=== PATIENT | female | born 1940 | race Caucasian/White ===

== ENCOUNTER 2018-09-19 23:24 | Inpatient (IN) | payer MEDICARE, OTHER ==
[2018-09-20] MEDS ORDERED: GLUCAGON 1 MG/ML VIAL IVP STA (00:05)
--- NOTE | 2018-09-20 00:10 | ED ---
General Adult HPI - General Source: patient, family, EMS, RN notes reviewed, old records reviewed Mode of arrival: EMS Limitations: language barrier, altered mental status <Zeke Santos - Last Filed: 09/20/18 00:54> <Erma Montiel - Last Filed: 09/20/18 03:03> - General Chief complaint: Chest Pain Stated complaint: Trouble swallowing Time Seen by Provider: 09/19/18 23:48 - History of Present Illness Initial comments: Chief complaint history of present illness this is a 77-year-old female here with her daughter. The patient has severe dementia. Unable to speak, does not fully understand. The daughter reports that she gave her mother some food, hamburger and she choked on it. Since then she's not been able to even swallow her own saliva. Emergency room patient was given several tablespoons of warm water and they were not able to pass through the esophagus and the stomach. (Zeke Santos) - Related Data Home Medications Medication Instructions Recorded Confirmed Aspirin [Adult Low Dose Aspirin EC] 81 mg PO DAILY 05/15/17 05/15/17 Atorvastatin Calcium [Lipitor] 20 mg PO DAILY 05/15/17 05/15/17 Lisinopril [Zestril] 5 mg PO DAILY 05/15/17 05/15/17 Memantine HCl [Namenda Xr] 28 mg PO DAILY 05/15/17 05/15/17 Allergies Allergy/AdvReac Type Severity Reaction Status Date / Time No Known Allergies Allergy Verified 05/15/17 19:18 Review of Systems ROS Other: All systems not noted in ROS Statement are negative. <Zeke Santos - Last Filed: 09/20/18 00:54> ROS Other: All systems not noted in ROS Statement are negative. <Erma Montiel P - Last Filed: 09/20/18 03:03> ROS Statement: Those systems with pertinent positive or pertinent negative responses have been documented in the HPI. Review of systems. Patient is not able to communicate well enough. Past medical problems significant for occasionally having food stuck but the daughter reports Unable to dislodge at home. Otherwise the patient's surgeries include cholecystectomy. Denies ALLERGIES. Family history Brother and sister both throat and lung cancer respectively. Nonsmoker nondrinker (Zeke Santos) Past Medical History Past Medical History: Dementia Additional Past Medical History / Comment(s): daughter poor historian History of Any Multi-Drug Resistant Organisms: None Reported Past Surgical History: Cholecystectomy Past Psychological History: No Psychological Hx Reported Smoking Status: Never smoker Past Alcohol Use History: None Reported Past Drug Use History: None Reported <Zeke Santos - Last Filed: 09/20/18 00:54> General Exam Limitations: language barrier, altered mental status <Zeke Santos - Last Filed: 09/20/18 00:54> - General Exam Comments Initial Comments: General: The patient is awake is spitting up her phlegm. Unable to swallow her own saliva. Patient is edentulous and it appears as though she has a food bolus in her esophagus. She is not having any difficulty breathing. Vital signs temperature 90.6 history rate 18 pulse ox 97% room air blood pressure 108/76 Eye: Pupils are equal, round and reactive to light, extra-ocular movements are intact; there is normal conjunctiva bilaterally. No signs of icterus. Ears, nose, mouth and throat: There are moist mucous membranes patient's edentulous. Neck: The neck is supple,. Cardiovascular: There is a regular rate and rhythm. No murmur, rub or gallop is appreciated. Respiratory: Lungs are clear to auscultation, respirations are non-labored, breath sounds are equal. No wheezes, stridor, rales, or rhonchi. Gastrointestinal: Daughter, who takes care of her states she thinks she may be constipated Back: There is no tenderness to palpation in the midline. There is no obvious deformity. No rashes noted. Musculoskeletal: Normal ROM, no tenderness, There is no pedal edema.. Neurological: Due to dementia patient is unable to perform neurological test. The patient is able to ambulate Skin: Skin is warm and dry and no rashes or lesions are noted. Psychiatric: Severe dementia, unable to cooperate (Zeke Santos) Course Vital Signs 09/19/18 09/19/18 09/20/18 23:31 23:39 01:38 Temperature 96.7 F L Pulse Rate 96 84 Respiratory 20 18 18 Rate Blood Pressure 108/76 106/79 O2 Sat by Pulse 97 96 Oximetry Medical Decision Making <Zeke Santos - Last Filed: 09/20/18 00:54> - Lab Data Result diagrams: 09/20/18 00:45 09/20/18 00:45 <Erma Montiel - Last Filed: 09/20/18 03:03> - Medical Decision Making Medical decision making; a 77-year-old female with severe dementia. Unable to speak. Sometimes even unable to swallow with coordination. Is suspected the patient may have a food bolus in the esophagus. She didn't eat a hamburger at home and daughter reports that appears a she was choking on it. When she arrived emergency room she was still's gurgling and spitting up some phlegm. She was unable to swallow warm are warm water. The patient's chest x-ray was done reviewed radiologist his impression is negative chest. Labs are drawn. The patient was given glucagon 1 mg. But due to her lack of coordination to grow 15 seconds district a little bit of water. Still waiting to see if the patient's food bolus was relieved. The patient was endorsed to ER physician Dr. Montiel. She will determine final disposition. (Zeke Santos) care was signed out to me by Dr. Santos. I reevaluated the patient she continued to have difficulty with swallowing. She did attempt to drink water bu t would have choking episodes. Family at bedside was suctioning or every 20-30 minutes due to difficulty with oral secretions. I discussed patient care with Dr. Joe cisneros who agrees with the plan to place the patient in observation to the medicine service he will evaluate the patient in the morning for possible endoscopy. (Erma Montiel) - Lab Data Lab Results 09/20/18 09/20/18 Range/Units 00:45 00:45 WBC 12.8 H (3.8-10.6) k/uL RBC 4.44 (3.80-5.40) m/uL Hgb 13.1 (11.4-16.0) gm/dL Hct 40.6 (34.0-46.0) % MCV 91.4 (80.0-100.0) fL MCH 29.6 (25.0-35.0) pg MCHC 32.3 (31.0-37.0) g/dL RDW 13.3 (11.5-15.5) % Plt Count 423 (150-450) k/uL Neutrophils % 71 % Lymphocytes % 19 % Monocytes % 5 % Eosinophils % 3 % Basophils % 0 % Neutrophils # 9.1 H (1.3-7.7) k/uL Lymphocytes # 2.5 (1.0-4.8) k/uL Monocytes # 0.7 (0-1.0) k/uL Eosinophils # 0.4 (0-0.7) k/uL Basophils # 0.1 (0-0.2) k/uL Sodium 143 (137-145) mmol/L Potassium 4.5 (3.5-5.1) mmol/L Chloride 107 (98-107) mmol/L Carbon Dioxide 27 (22-30) mmol/L Anion Gap 9 mmol/L BUN 34 H (7-17) mg/dL Creatinine 0.56 (0.52-1.04) mg/dL Est GFR (CKD-EPI)AfAm >90 (>60 ml/min/1.73 sqM) Est GFR (CKD-EPI)NonAf >90 (>60 ml/min/1.73 sqM) Glucose 128 H (74-99) mg/dL Calcium 9.9 (8.4-10.2) mg/dL Total Bilirubin 0.4 (0.2-1.3) mg/dL AST 19 (14-36) U/L ALT 19 (9-52) U/L Alkaline Phosphatase 57 (38-126) U/L Total Protein 7.6 (6.3-8.2) g/dL Albumin 4.4 (3.5-5.0) g/dL Disposition <Zeke Santos - Last Filed: 09/20/18 00:54> Is patient prescribed a controlled substance at d/c from ED?: No <Erma Montiel - Last Filed: 09/20/18 03:03> Clinical Impression: Esophageal obstruction due to food impaction, Advanced dementia Disposition: ADMITTED IP TO THIS HOSP Condition: Serious Referrals: Guru Finn MD [Primary Care Provider] - 1-2 days
[2018-09-20] MEDS: SODIUM CHLORIDE 0.9% 1,000 ML IV SCH ×2 (00:22→22:17)
--- NOTE | 2018-09-20 00:41 | XR ---
EXAM: XR Chest, 2 Views CLINICAL HISTORY: Rule out aspiration TECHNIQUE: Frontal and lateral views of the chest. COMPARISON: No relevant prior studies available. FINDINGS: Lungs: Unremarkable. No consolidation. Pleural space: Unremarkable. No pneumothorax. Heart: Unremarkable. No cardiomegaly. Mediastinum: Unremarkable. Bones/joints: Unremarkable. IMPRESSION: Normal chest x-rays.
[2018-09-20 01:03] LABS: Basophils # (A) 0.1 k/uL (0-0.2); Basophils % (A) 0 %; Eosinophils # (A) 0.4 k/uL (0-0.7); Eosinophils % (A) 3 %; HCT 40.6 % (34.0-46.0); HGB 13.1 gm/dL (11.4-16.0); Lymphocytes # (A) 2.5 k/uL (1.0-4.8); Lymphocytes % (A) 19 %; MCH 29.6 pg (25.0-35.0); MCHC 32.3 g/dL (31.0-37.0); MCV 91.4 fL (80.0-100.0); Mean Platelet Volume 8.2; Monocytes # (A) 0.7 k/uL (0-1.0); Monocytes % (A) 5 %; Neutrophils # (A) 9.1 k/uL (1.3-7.7); Neutrophils % (A) 71 %; Platelet Count 423 k/uL (150-450); RBC 4.44 m/uL (3.80-5.40); RDW 13.3 % (11.5-15.5); WBC 12.8 k/uL (3.8-10.6)
[2018-09-20 01:15] LABS: ALT 19 U/L (9-52); AST 19 U/L (14-36); Albumin 4.4 g/dL (3.5-5.0); Alkaline Phosphatase 57 U/L (38-126); Anion Gap 9 mmol/L; Blood Urea Nitrogen 34 mg/dL (7-17); Calcium 9.9 mg/dL (8.4-10.2); Carbon Dioxide 27 mmol/L (22-30); Chloride 107 mmol/L (98-107); Glucose 128 mg/dL (74-99); Potassium 4.5 mmol/L (3.5-5.1); Sodium 143 mmol/L (137-145); Total Bilirubin 0.4 mg/dL (0.2-1.3); Total Protein 7.6 g/dL (6.3-8.2)
[2018-09-20 04:49] LABS: Amorphous Sediment,Urine Few /hpf; Appearance,Urine Turbid (Clear); Bilirubin,Urine Negative (Negative); Blood,Urine Trace (Negative); Color,Urine Light Red; Glucose,Urine (UA) Negative (Negative); Ketones,Urine Negative (Negative); Leukocyte Esterase,Urine Trace (Negative); Mucus,Urine Rare /hpf; Nitrite,Urine Negative (Negative); Protein,Urine 2+ (Negative); RBC,Urine 53 /hpf (0-5); Specific Gravity,Urine 1.018 (1.001-1.035); Squamous Epithelial Cell,Urine <1 /hpf (0-4); Triple Phosphate Crystal,Urine Rare /hpf; Urobilinogen,Urine <2.0 mg/dL (<2.0); WBC,Urine 146 /hpf (0-5)
[2018-09-20] MEDS ORDERED: ONDANSETRON 4 MG/2 ML VIAL IVP PRN (09:15)
--- NOTE | 2018-09-20 09:16 | P.HPIM ---
History of Present Illness H&P Date: 09/20/18 This is a 77-year-old female patient who presented to the ER with complaint of food bolus. According to ER report patient has advanced dementia and was brought in by her daughter. Patient was given some hamburger per her daughter and started to choke on it. Patient since then has been unable to swallow her own saliva. Patient does have a past medical history of advanced dementia in which she is nonverbal and cholecystectomy. Chest x-ray completed showing normal chest. Patient satting 97% on room air. GI services have been consulted. Patient initial UA showing sludge. Repeat UA and culture has been ordered. Patient is currently nothing by mouth. Normal saline at 50. At this time patient has no complaints. No concerns per nursing staff. Review of Systems Please refer to HPI otherwise unremarkable Past Medical History Past Medical History: Dementia Additional Past Medical History / Comment(s): daughter poor historian History of Any Multi-Drug Resistant Organisms: None Reported Past Surgical History: Cholecystectomy Past Psychological History: No Psychological Hx Reported Smoking Status: Never smoker Past Alcohol Use History: None Reported Past Drug Use History: None Reported Medications and Allergies Home Medications Medication Instructions Recorded Confirmed Type Lisinopril [Zestril] 5 mg PO DAILY 05/15/17 09/20/18 History Memantine HCl [Namenda Xr] 28 mg PO DAILY 05/15/17 09/20/18 History Atorvastatin [Lipitor] 10 mg PO DAILY 09/20/18 09/20/18 History Allergies Allergy/AdvReac Type Severity Reaction Status Date / Time No Known Allergies Allergy Verified 05/15/17 19:18 Physical Exam Vitals: Vital Signs Temp Pulse Pulse Resp BP BP Pulse Ox 09/20/18 07:40 76 16 09/20/18 07:00 97.8 F 76 16 105/66 95 09/20/18 04:12 97.9 F 74 16 115/72 98 09/20/18 03:00 98.7 F 71 19 109/69 97 09/20/18 01:38 84 18 106/79 96 09/19/18 23:39 18 09/19/18 23:31 96.7 F L 96 20 108/76 97 Intake and Output 09/19/18 09/20/18 09/20/18 22:59 06:59 14:59 Output Total 300 Balance -300 Output: Urine 300 Other: Weight 61.235 kg Head normocephalic Neck supple Lungs clear to auscultation bilaterally no wheezing or crackles Heart regular rate and rhythm S1-S2, no rub or gallop Abdomen is soft nontender nondistended positive bowel sounds no hepatosplenomegaly Extremities no edema Neuro advanced dementia and nonverbal Results CBC & Chem 7: 09/20/18 00:45 09/20/18 00:45 Labs: Abnormal Lab Results - Last 24 Hours (Table) 09/20/18 09/20/18 09/20/18 Range/Units 00:45 00:45 03:45 WBC 12.8 H (3.8-10.6) k/uL Neutrophils # 9.1 H (1.3-7.7) k/uL BUN 34 H (7-17) mg/dL Glucose 128 H (74-99) mg/dL Urine Appearance Turbid H (Clear) Urine Protein 2+ H (Negative) Urine Blood Trace H (Negative) Ur Leukocyte Esterase Trace H (Negative) Urine RBC 53 H (0-5) /hpf Urine WBC 146 H (0-5) /hpf Urine WBC Clumps Occasional H (None) /hpf Triple Phos Crystals Rare H (None) /hpf Amorphous Sediment Few H (None) /hpf Urine Mucus Rare H (None) /hpf Thrombosis Risk Factor Assmnt - Choose All That Apply Any of the Below Risk Factors Present?: No Other Risk Factors: No Each Risk Factor Represents 3 Points: Age 75 years or older Other congenital or acquired thrombophilia - If yes, enter type in comment: No Thrombosis Risk Factor Assessment Total Risk Factor Score: 3 Thrombosis Risk Factor Assessment Level: Very Low Risk Assessment and Plan Assessment: 1. Trouble swallowing. GI services have been consulted. Chest x-ray completed showing no acute process. Patient currently nothing by mouth 2. Possible UTI. Repeat UA and culture has been ordered. 3. History of advanced dementia. Patient is nonverbal. Patient is maintained on Namenda 4. History of cholecystectomy DVT prophylaxis SCDs until evaluated by GI services. GI prophylaxis Protonix Time with Patient: Greater than 30 (Greater than 60% of the total time spent in counseling and coordination of care. I performed an examination of the patient and discussed their management with the Nurse Practitioner. I have reviewed the Nurse Practitioner's notes and agree with the documented findings and plan of care)
[2018-09-20 09:52] LABS: Amorphous Sediment,Urine Rare /hpf; Appearance,Urine Turbid (Clear); Bacteria,Urine Many /hpf; Bilirubin,Urine Negative (Negative); Blood,Urine Moderate (Negative); Color,Urine Yellow; Glucose,Urine (UA) Negative (Negative); Ketones,Urine Negative (Negative); Leukocyte Esterase,Urine Large (Negative); Mucus,Urine Rare /hpf; Nitrite,Urine Positive (Negative); PH, Urine 7.5 (5.0-8.0); Protein,Urine 2+ (Negative); RBC,Urine >182 /hpf (0-5); Urobilinogen,Urine <2.0 mg/dL (<2.0); WBC,Urine >182 /hpf (0-5)
[2018-09-20] MEDS: PANTOPRAZOLE 40 MG/10 ML VIAL IVP SCH (10:19)
--- NOTE | 2018-09-20 10:32 | P.CONS ---
History of Present Illness - Reason for Consult Consult date: 09/20/18 Esophageal foreign body Requesting physician: Guru Finn - Chief Complaint Choking - History of Present Illness 77-year-old female with advanced dementia, dyslipidemia and hypertension who presents to the hospital with complaints of difficulty swallowing. Of note the patient is able to provide little history secondary to her dementia, discussion with the nursing team and review of the EMR were therefore used together information. The patient had been eating yesterday when she developed difficulty swallowing and associated choking on the food. The patient had been unable to tolerate her secretions and nursing has noted coughing and bringing up of saliva. This morning the patient was seen lying in bed, nonverbal. Attempts to give the patient water were unsuccessful in suspicion is for esophageal food bolus. Review of Systems Review of systems could not be obtained and the patient with advanced dementia who is essentially nonverbal. Past Medical History Past Medical History: Dementia Additional Past Medical History / Comment(s): daughter poor historian History of Any Multi-Drug Resistant Organisms: None Reported Past Surgical History: Cholecystectomy Past Psychological History: No Psychological Hx Reported Smoking Status: Never smoker Past Alcohol Use History: None Reported Past Drug Use History: None Reported Additional History: Family history: Reviewed and noncontributory to current medical presentation. Medications and Allergies Home Medications Medication Instructions Recorded Confirmed Type Lisinopril [Zestril] 5 mg PO DAILY 05/15/17 09/20/18 History Memantine HCl [Namenda Xr] 28 mg PO DAILY 05/15/17 09/20/18 History Atorvastatin [Lipitor] 10 mg PO DAILY 09/20/18 09/20/18 History Allergies Allergy/AdvReac Type Severity Reaction Status Date / Time No Known Allergies Allergy Verified 05/15/17 19:18 Physical Exam Vitals: Vital Signs Temp Pulse Pulse Resp BP BP Pulse Ox 09/20/18 07:40 76 16 09/20/18 07:00 97.8 F 76 16 105/66 95 09/20/18 04:12 97.9 F 74 16 115/72 98 09/20/18 03:00 98.7 F 71 19 109/69 97 09/20/18 01:38 84 18 106/79 96 09/19/18 23:39 18 09/19/18 23:31 96.7 F L 96 20 108/76 97 Intake and Output 09/19/18 09/20/18 09/20/18 22:59 06:59 14:59 Output Total 300 Balance -300 Output: Urine 300 Other: # Voids 1 Weight 61.235 kg On physical examination, patient appears comfortable in no apparent distress. HEAD: Normocephalic, atraumatic. EYES: No scleral icterus. No conjunctival injection. MOUTH: No lesions, tongue midline. NECK: Trachea midline, no gross abnormalities. CHEST: Clear to auscultation with no wheezing or rhonchi appreciated. HEART: S1-S2 appreciated. ABDOMEN: Soft, nontender to palpation. Bowel sounds are positive. No organomegaly. No guarding or rigidity. EXTREMITIES: No pedal edema. SKIN: No rashes, no jaundice. NEUROLOGIC: Alert and able to follow commands but nonverbal. No focal deficits. Results CBC & Chem 7: 09/20/18 00:45 09/20/18 00:45 Labs: Abnormal Lab Results - Last 24 Hours (Table) 09/20/18 09/20/18 09/20/18 Range/Units 00:45 00:45 03:45 WBC 12.8 H (3.8-10.6) k/uL Neutrophils # 9.1 H (1.3-7.7) k/uL BUN 34 H (7-17) mg/dL Glucose 128 H (74-99) mg/dL Urine Appearance Turbid H (Clear) Urine Protein 2+ H (Negative) Urine Blood Trace H (Negative) Urine Nitrite (Negative) Ur Leukocyte Esterase Trace H (Negative) Urine RBC 53 H (0-5) /hpf Urine WBC 146 H (0-5) /hpf Urine WBC Clumps Occasional H (None) /hpf Triple Phos Crystals Rare H (None) /hpf Amorphous Sediment Few H (None) /hpf Urine Bacteria (None) /hpf Urine Mucus Rare H (None) /hpf 09/20/18 Range/Units 09:38 WBC (3.8-10.6) k/uL Neutrophils # (1.3-7.7) k/uL BUN (7-17) mg/dL Glucose (74-99) mg/dL Urine Appearance Turbid H (Clear) Urine Protein 2+ H (Negative) Urine Blood Moderate H (Negative) Urine Nitrite Positive H (Negative) Ur Leukocyte Esterase Large H (Negative) Urine RBC >182 H (0-5) /hpf Urine WBC >182 H (0-5) /hpf Urine WBC Clumps Many H (None) /hpf Triple Phos Crystals (None) /hpf Amorphous Sediment Rare H (None) /hpf Urine Bacteria Many H (None) /hpf Urine Mucus Rare H (None) /hpf Chest x-ray: report reviewed (X-ray chest with no acute pathology noted.) Assessment and Plan (1) Esophageal obstruction due to food impaction Narrative/Plan: 77-year-old female who presented to the hospital after developing choking and difficulty managing secretions after eating yesterday. Patient has history of advanced dementia and is able to provide little history but suspicion is for an esophageal food obstruction. The patient was given glucagon in the emergency department with no improvement in her symptoms. Current Visit: Yes Status: Acute Code(s): K22.2 - ESOPHAGEAL OBSTRUCTION; T18.128A - FOOD IN ESOPHAGUS CAUSING OTHER INJURY, INITIAL ENCOUNTER SNOMED Code(s): 057618824 Plan: Supportive care Nothing by mouth Continue to monitor signs and symptoms Continue Protonix daily Plan 1 urgent EGD for further evaluation Thank you for allowing us to participate in the care of the patient, we will continue to follow
[2018-09-20] MEDS ORDERED: IV FLUID CONTINUATION 400 ML IV ONE (11:41)
[2018-09-20] MEDS ORDERED: PROPOFOL 10 MG/ML 20 ML VIAL IV ONE (12:12)
[2018-09-20] MEDS ORDERED: LIDOCAINE 1% INJ 10MG/ML (20 ML MDV) ONE (12:12)
--- NOTE | 2018-09-20 12:42 | P.PCN ---
Date of Procedure: 09/20/18 Description of Procedure: BRIEF HISTORY: Patient is a 77-year-old female with medical history significant for hypertension and dyslipidemia who presented to the ER due to choking and sensation of an esophageal foreign body. The patient had been eating hamburger earlier in the day when she had trouble swallowing. The patient had difficulty tolerating her secretions and presented to the ER for further evaluation. The patient was given glucagon for treatment with no symptomatically improvement. She was in the form continued to have symptoms of dysphagia, choking and difficulty tolerating her secretions. The patient was brought to endoscopy for further evaluation with EGD. PROCEDURE PERFORMED: Esophagogastroduodenoscopy esophageal foreign body removal. PREOPERATIVE DIAGNOSIS: Esophageal foreign body, food impaction. ESTIMATED BLOOD LOSS: Minimal. IV sedation per anesthesia. PROCEDURE: After informed consent was obtained, the patient was brought into the endoscopy unit. IV sedation was administered by Anesthesia under continuous monitoring. Initially the Olympus GIF-190 video endoscope was inserted into the mouth. Esophagus intubated without any difficulty and a large food bolus was noted in the proximal esophagus. Gentle pressure was used to try to advance the food bolus which was unsuccessful. At this time a Araujo net was used to try and snare the food, which was unsuccessful. However at this time the food was pushed into the middle esophagus and from that location was able to be gently advanced into the stomach.. The EGD scope was then gradually advanced into the stomach and duodenum and carefully examined. The bulb and the second part of the duodenum appeared normal. The scope at this time was withdrawn to the stomach, adequately insufflated with air, and upon careful examination, mucosa of the antrum, body, cardia and the fundus appeared normal, with the food that was previously impacted noted in the stomach. The scope was then withdrawn into the esophagus. The GE junction was located at 37 cm from the incisors. The esophagus appeared normal. There were no erosions or ulcerations seen and the patient tolerated the procedure well. IMPRESSION: 1. Esophageal foreign body/food impaction in the proximal esophagus which was gently advanced into the stomach. 2. Otherwise normal EGD. RECOMMENDATIONS: The findings of this examination were discussed with the patient and her family. Okay for full liquids at this time. Advance as tolerated to chopped diet. Continue Protonix daily. Follow-up in one to 2 weeks, at which time consideration for repeat EGD with esophageal dilation which was not performed at this time due to some bleeding from the impaction site in the esophagus.
[2018-09-20] MEDS: MEMANTINE 10 MG TAB PO SCH ×2 (13:22→22:17)
--- NOTE | 2018-09-20 16:17 | XR ---
EXAMINATION TYPE: XR chest 1V portable DATE OF EXAM: 09/20/2018 COMPARISON: Today HISTORY: Chest pain TECHNIQUE: Single frontal view of the chest is obtained. FINDINGS: There is mild infiltrate in the left lower lobe. The other lung dutton are clear. There is no heart failure. Heart size is normal. There is no pleural effusion. Bony thorax is intact. IMPRESSION: There is new patchy left lower lobe pneumonia and atelectasis compared to exam earlier t linda.
[2018-09-20 16:57] VITALS: BMI 24.7
[2018-09-20] MEDS: POLYETHYLENE GLYCOL 3350 17 GM POWD.PACK PO SCH (22:17)
[2018-09-21 06:37] LABS: Basophils # (A) 0.1 k/uL (0-0.2); Basophils % (A) 1 %; Eosinophils # (A) 0.2 k/uL (0-0.7); Eosinophils % (A) 2 %; HCT 33.8 % (34.0-46.0); HGB 10.9 gm/dL (11.4-16.0); Lymphocytes # (A) 3.5 k/uL (1.0-4.8); Lymphocytes % (A) 28 %; MCH 29.1 pg (25.0-35.0); MCHC 32.1 g/dL (31.0-37.0); MCV 90.7 fL (80.0-100.0); Mean Platelet Volume 7.6; Monocytes # (A) 0.6 k/uL (0-1.0); Monocytes % (A) 5 %; Neutrophils # (A) 7.8 k/uL (1.3-7.7); Neutrophils % (A) 63 %; Platelet Count 332 k/uL (150-450); RBC 3.73 m/uL (3.80-5.40); WBC 12.3 k/uL (3.8-10.6)
[2018-09-21 06:53] LABS: ALT 15 U/L (9-52); AST 12 U/L (14-36); Alkaline Phosphatase 52 U/L (38-126); Anion Gap 4 mmol/L; Blood Urea Nitrogen 22 mg/dL (7-17); Calcium 8.6 mg/dL (8.4-10.2); Carbon Dioxide 26 mmol/L (22-30); Chloride 112 mmol/L (98-107); Glucose 102 mg/dL (74-99); Potassium 4.2 mmol/L (3.5-5.1); Sodium 142 mmol/L (137-145); Total Bilirubin 0.4 mg/dL (0.2-1.3); Total Protein 5.7 g/dL (6.3-8.2)
[2018-09-21] MEDS: LISINOPRIL 5 MG TAB PO SCH (07:56)
[2018-09-21] MEDS: PANTOPRAZOLE 40 MG/10 ML VIAL IVP SCH (08:01)
--- NOTE | 2018-09-21 09:19 | P.PN ---
Subjective Progress Note Date: 09/21/18 This is a 77-year-old female patient who presented to the ER with complaint of food bolus. According to ER report patient has advanced dementia and was brought in by her daughter. Patient was given some hamburger per her daughter and started to choke on it. Patient since then has been unable to swallow her own saliva. Patient does have a past medical history of advanced dementia in which she is nonverbal and cholecystectomy. Chest x-ray completed showing normal chest. Patient satting 97% on room air. GI services have been consulted. Patient initial UA showing sludge. Repeat UA and culture has been ordered. Patient is currently nothing by mouth. Normal saline at 50. At this time patient has no complaints. No concerns per nursing staff. On 09/21/2018 patient currently resting in bed. Patient remains confused which is her baseline. Patient is nonverbal. Per nursing staff patient has been able to swallow liquid but refusing to swallow food. She did undergo EGD yesterday with GI services in which food impaction was gently advanced into the stomach. At This time will consult speech pathology. UA positive for UTI. Patient started on Rocephin. Urine culture ordered Objective - Vital Signs Vital signs: Vital Signs Temp 98.4 F 09/21/18 07:23 Pulse 60 09/21/18 07:23 Resp 16 09/21/18 02:10 BP 97/42 09/21/18 07:23 Pulse Ox 91 L 09/21/18 07:23 Intake & Output 09/20/18 09/21/18 09/21/18 18:59 06:59 18:59 Intake Total 100 Balance 100 Weight 61.235 kg Intake: IV 100 Other: Voiding Method Diaper Diaper # Voids 2 1 # Bowel Movements 1 - Exam Head normocephalic Neck supple Lungs diminished bilaterally Heart regular rate and rhythm S1-S2, no rub or gallop Abdomen is soft nontender nondistended positive bowel sounds no hepatosplenomegaly Extremities no edema Neuro advanced dementia and nonverbal - Labs CBC & Chem 7: 09/21/18 06:14 09/21/18 06:14 Labs: Abnormal Lab Results - Last 24 Hours (Table) 09/20/18 09/21/18 09/21/18 Range/Units 09:38 06:14 06:14 WBC 12.3 H (3.8-10.6) k/uL RBC 3.73 L (3.80-5.40) m/uL Hgb 10.9 L (11.4-16.0) gm/dL Hct 33.8 L (34.0-46.0) % Neutrophils # 7.8 H (1.3-7.7) k/uL Chloride 112 H (98-107) mmol/L BUN 22 H (7-17) mg/dL Glucose 102 H (74-99) mg/dL AST 12 L (14-36) U/L Total Protein 5.7 L (6.3-8.2) g/dL Albumin 3.0 L (3.5-5.0) g/dL Urine Appearance Turbid H (Clear) Urine Protein 2+ H (Negative) Urine Blood Moderate H (Negative) Urine Nitrite Positive H (Negative) Ur Leukocyte Esterase Large H (Negative) Urine RBC >182 H (0-5) /hpf Urine WBC >182 H (0-5) /hpf Urine WBC Clumps Many H (None) /hpf Amorphous Sediment Rare H (None) /hpf Urine Bacteria Many H (None) /hpf Urine Mucus Rare H (None) /hpf Microbiology - Last 24 Hours (Table) 09/20/18 09:38 Urine Culture - Preliminary Urine,Catheterized Assessment and Plan Assessment: 1. Trouble swallowing due to food impaction. Patient underwent EGD on 09/20/2018 with GI services. During EGD fluid was gently advanced into the stomach. Per GI services continue full liquid diet at this time. Patient follow-up in 2 weeks for possible repeat EGD with esophageal dilation due to some bleeding from the impaction site in the esophagus. Per nursing staff at this time patient is swallowing liquids without difficulty but refusing to swallow food. We'll consult speech pathology at this time 2. Urinary tract infection. Patient started on Rocephin. Urine culture ordered 3. History of advanced dementia. Patient is nonverbal. Patient is maintained on Namenda 4. History of cholecystectomy 5. Possible pneumonia. Chest x-ray completed showing new patchy left lower lobe pneumonia and atelectasis compared to earlier exam today. Patient is on Rocephin. Repeat view chest x-ray ordered for a.m. DVT prophylaxis Lovenox. GI prophylaxis Protonix I performed an examination of the patient and discussed their management with the Nurse Practitioner. I have reviewed the Nurse Practitioner's notes and agree with the documented findings and plan of care
[2018-09-21] MEDS: ATORVASTATIN 10 MG TAB PO SCH (11:04)
[2018-09-21] MEDS: MEMANTINE 10 MG TAB PO SCH ×2 (11:04→22:56)
[2018-09-21] MEDS: PIPERACILLIN-TAZOBACTAM 3.375 GM in SODIUM CHLORIDE 0.9% 100 ML IVPB SCH ×2 (15:27→23:00)
--- NOTE | 2018-09-21 20:15 | P.PN ---
Subjective Progress Note Date: 09/21/18 Principal diagnosis: Esophageal foreign body/food impaction Patient lying in bed, no acute events. She is tolerating her diet. Objective - Vital Signs Vital signs: Vital Signs Temp 98.4 F 09/21/18 07:23 Pulse 60 09/21/18 07:23 Resp 16 09/21/18 02:10 BP 97/42 09/21/18 07:23 Pulse Ox 91 L 09/21/18 07:23 Intake & Output 09/20/18 09/21/18 09/21/18 18:59 06:59 18:59 Intake Total 100 Balance 100 Weight 61.235 kg Intake: IV 100 Other: Voiding Method Diaper Diaper # Voids 2 1 # Bowel Movements 1 - Exam On physical examination, patient appears comfortable in no apparent distress. HEAD: Normocephalic, atraumatic. EYES: No scleral icterus. No conjunctival injection. MOUTH: No lesions, tongue midline. NECK: Trachea midline, no gross abnormalities. CHEST: Clear to auscultation with no wheezing or rhonchi appreciated. HEART: S1-S2 appreciated. ABDOMEN: Soft, nontender to palpation. Bowel sounds are positive. No organomegaly. No guarding or rigidity. EXTREMITIES: No pedal edema. SKIN: No rashes, no jaundice. NEUROLOGIC: Alert and able to follow commands but nonverbal. No focal deficits. - Labs CBC & Chem 7: 09/21/18 06:14 09/21/18 06:14 Labs: Abnormal Lab Results - Last 24 Hours (Table) 09/21/18 09/21/18 Range/Units 06:14 06:14 WBC 12.3 H (3.8-10.6) k/uL RBC 3.73 L (3.80-5.40) m/uL Hgb 10.9 L (11.4-16.0) gm/dL Hct 33.8 L (34.0-46.0) % Neutrophils # 7.8 H (1.3-7.7) k/uL Chloride 112 H (98-107) mmol/L BUN 22 H (7-17) mg/dL Glucose 102 H (74-99) mg/dL AST 12 L (14-36) U/L Total Protein 5.7 L (6.3-8.2) g/dL Albumin 3.0 L (3.5-5.0) g/dL Microbiology - Last 24 Hours (Table) 09/20/18 09:38 Urine Culture - Preliminary Urine,Catheterized Assessment and Plan (1) Esophageal obstruction due to food impaction Narrative/Plan: 77-year-old female who presented to the hospital after developing choking and difficulty managing secretions after eating EGD performed and significant for a proximal food impaction. Current Visit: Yes Status: Acute Code(s): K22.2 - ESOPHAGEAL OBSTRUCTION; T18.128A - FOOD IN ESOPHAGUS CAUSING OTHER INJURY, INITIAL ENCOUNTER SNOMED Code(s): 346366246 Plan: Supportive care Pureed diet ordered Continue to monitor signs and symptoms Continue Protonix daily Miralax ordered Thank you for allowing us to participate in the care of the patient, the GI service will standby, please call us back with any questions or concerns
[2018-09-21] MEDS: POLYETHYLENE GLYCOL 3350 17 GM POWD.PACK PO SCH (22:56)
[2018-09-21] MEDS: SODIUM CHLORIDE 0.9% 1,000 ML IV SCH (23:01)
[2018-09-22 07:48] LABS: ALT 23 U/L (9-52); AST 13 U/L (14-36); Alkaline Phosphatase 49 U/L (38-126); Anion Gap 2 mmol/L; Blood Urea Nitrogen 14 mg/dL (7-17); Calcium 8.6 mg/dL (8.4-10.2); Carbon Dioxide 26 mmol/L (22-30); Chloride 111 mmol/L (98-107); Glucose 99 mg/dL (74-99); Potassium 4.1 mmol/L (3.5-5.1); Sodium 139 mmol/L (137-145); Total Bilirubin 0.4 mg/dL (0.2-1.3); Total Protein 5.7 g/dL (6.3-8.2)
[2018-09-22 07:49] LABS: Basophils % (A) 1 %; Eosinophils # (A) 0.3 k/uL (0-0.7); Eosinophils % (A) 4 %; HCT 32.9 % (34.0-46.0); HGB 10.7 gm/dL (11.4-16.0); Lymphocytes # (A) 2.4 k/uL (1.0-4.8); Lymphocytes % (A) 34 %; MCH 29.4 pg (25.0-35.0); MCHC 32.5 g/dL (31.0-37.0); MCV 90.5 fL (80.0-100.0); Mean Platelet Volume 7.9; Monocytes # (A) 0.4 k/uL (0-1.0); Monocytes % (A) 6 %; Neutrophils # (A) 3.8 k/uL (1.3-7.7); Neutrophils % (A) 54 %; Platelet Count 323 k/uL (150-450); RBC 3.63 m/uL (3.80-5.40); RDW 12.8 % (11.5-15.5); WBC 7.1 k/uL (3.8-10.6)
[2018-09-22] MEDS: PIPERACILLIN-TAZOBACTAM 3.375 GM in SODIUM CHLORIDE 0.9% 100 ML IVPB SCH ×3 (08:13→23:42)
--- NOTE | 2018-09-22 09:07 | XR ---
EXAMINATION TYPE: XR chest 2V DATE OF EXAM: 09/22/2018 COMPARISON: 09/20/2018 TECHNIQUE: PA and lateral views submitted. HISTORY: Follow-up abnormal x-ray, pneumonia FINDINGS: Biapical pleural thickening noted and there is diffuse osteopenia with arthropathy of the shoulders. Heart size is normal. No overt failure. No pleural effusion. Surgical clips in the abdomen. Hypertrop hic change of the spine. There is improving left basilar infiltrate. IMPRESSION: 1. Improving left basilar infiltrate.
[2018-09-22] MEDS: ENOXAPARIN 40 MG/0.4 ML SYRINGE SQ SCH (09:31)
[2018-09-22] MEDS: LISINOPRIL 5 MG TAB PO SCH (09:32)
[2018-09-22] MEDS: ATORVASTATIN 10 MG TAB PO SCH (09:32)
[2018-09-22] MEDS: PANTOPRAZOLE 40 MG/10 ML VIAL IVP SCH (09:32)
[2018-09-22] MEDS: MEMANTINE 10 MG TAB PO SCH ×2 (09:32→20:16)
--- NOTE | 2018-09-22 09:49 | P.PN ---
Subjective Progress Note Date: 09/22/18 This is a 77-year-old female patient who presented to the ER with complaint of food bolus. According to ER report patient has advanced dementia and was brought in by her daughter. Patient was given some hamburger per her daughter and started to choke on it. Patient since then has been unable to swallow her own saliva. Patient does have a past medical history of advanced dementia in which she is nonverbal and cholecystectomy. Chest x-ray completed showing normal chest. Patient satting 97% on room air. GI services have been consulted. Patient initial UA showing sludge. Repeat UA and culture has been ordered. Patient is currently nothing by mouth. Normal saline at 50. At this time patient has no complaints. No concerns per nursing staff. On 09/21/2018 patient currently resting in bed. Patient remains confused which is her baseline. Patient is nonverbal. Per nursing staff patient has been able to swallow liquid but refusing to swallow food. She did undergo EGD yesterday with GI services in which food impaction was gently advanced into the stomach. At This time will consult speech pathology. UA positive for UTI. Patient started on Rocephin. Urine culture ordered On 09/22/2017 patient is currently resting in chair. Patient's daughter is at bedside. Patient is at baseline. Patient was evaluated by speech pathology recommending dysphagia pured diet. Patient also had two-view chest x-ray completed this morning showing improving the left basilar infiltrate. Patient remains on Zosyn. Urine culture currently growing gram-negative bacilli. Objective - Vital Signs Vital signs: Vital Signs Temp 98.4 F 09/22/18 07:00 Pulse 60 09/22/18 07:00 Resp 16 09/22/18 07:00 BP 111/58 09/22/18 07:00 Pulse Ox 96 09/22/18 07:00 Intake & Output 09/21/18 09/22/18 09/22/18 18:59 06:59 18:59 Intake Total 450 700 Balance 450 700 Intake: Intake, IV Titration 450 700 Amount Piperacillin-Tazobactam 3 100 100 .375 gm In Sodium Chloride 0.9% 100 ml @ 25 mls/hr IVPB Q8HR [facility] Rx# :[id number] Sodium Chloride 0.9% 1, 300 600 000 ml @ 50 mls/hr IV . Q20H [facility] Rx#:[id number] cefTRIAXone 1 gm In 50 Sodium Chloride 0.9% 50 ml @ 100 mls/hr IVPB Q24HR [facility] Rx#:[id number] Other: Voiding Method Diaper Diaper # Voids 1 - Exam Head normocephalic Neck supple Lungs diminished bilaterally Heart regular rate and rhythm S1-S2, no rub or gallop Abdomen is soft nontender nondistended positive bowel sounds no hepatosplenomegaly Extremities no edema Neuro advanced dementia and nonverbal - Labs CBC & Chem 7: 09/22/18 07:00 09/22/18 07:00 Labs: Abnormal Lab Results - Last 24 Hours (Table) 09/22/18 09/22/18 Range/Units 07:00 07:00 RBC 3.63 L (3.80-5.40) m/uL Hgb 10.7 L (11.4-16.0) gm/dL Hct 32.9 L (34.0-46.0) % Chloride 111 H (98-107) mmol/L AST 13 L (14-36) U/L Total Protein 5.7 L (6.3-8.2) g/dL Albumin 3.0 L (3.5-5.0) g/dL Microbiology - Last 24 Hours (Table) 09/20/18 09:38 Urine Culture - Preliminary Urine,Catheterized Gram Neg Bacilli Assessment and Plan Assessment: 1. Trouble swallowing due to food impaction. Patient underwent EGD on 09/20/2018 with GI services. During EGD fluid was gently advanced into the stomach. Per GI services continue full liquid diet at this time. Patient follow-up in 2 weeks for possible repeat EGD with esophageal dilation due to some bleeding from the impaction site in the esophagus. Per nursing staff at this time patient is swallowing liquids without difficulty but refusing to s wallow food. Per cardiology recommending dysphagia pured diet. 2. Urinary tract infection. Patient started on Rocephin. Urine culture currently growing gram-negative bacilli. 3. History of advanced dementia. Patient is nonverbal. Patient is maintained on Namenda 4. History of cholecystectomy 5. Possible pneumonia. Chest x-ray completed showing new patchy left lower lobe pneumonia and atelectasis compared to earlier exam today. Antibiotic has been switched to Zosyn. Repeat chest x-ray showing improving left basal infiltrate. DVT prophylaxis Lovenox. GI prophylaxis Protonix I performed an examination of the patient and discussed their management with the Nurse Practitioner. I have reviewed the Nurse Practitioner's notes and agree with the documented findings and plan of care
[2018-09-22] MEDS: SODIUM CHLORIDE 0.9% 1,000 ML IV SCH (16:28)
[2018-09-22] MEDS: POLYETHYLENE GLYCOL 3350 17 GM POWD.PACK PO SCH (20:16)
[2018-09-23 01:19] VITALS: TEMP 97.5
[2018-09-23 07:30] VITALS: BP 118/67; PULSE 72; RESP 16
[2018-09-23] MEDS: PIPERACILLIN-TAZOBACTAM 3.375 GM in SODIUM CHLORIDE 0.9% 100 ML IVPB SCH (07:31)
[2018-09-23] MEDS: SODIUM CHLORIDE 0.9% 1,000 ML IV SCH (07:32)
[2018-09-23 07:33] LABS: Basophils % (A) 1 %; Eosinophils # (A) 0.3 k/uL (0-0.7); Eosinophils % (A) 4 %; HCT 33.3 % (34.0-46.0); HGB 10.4 gm/dL (11.4-16.0); Lymphocytes # (A) 2.4 k/uL (1.0-4.8); Lymphocytes % (A) 33 %; MCH 28.6 pg (25.0-35.0); MCHC 31.3 g/dL (31.0-37.0); MCV 91.4 fL (80.0-100.0); Mean Platelet Volume 7.5; Monocytes # (A) 0.4 k/uL (0-1.0); Monocytes % (A) 6 %; Neutrophils % (A) 55 %; Platelet Count 288 k/uL (150-450); RBC 3.64 m/uL (3.80-5.40); RDW 12.9 % (11.5-15.5); WBC 7.2 k/uL (3.8-10.6)
[2018-09-23 07:58] LABS: ALT 20 U/L (9-52); AST 14 U/L (14-36); Alkaline Phosphatase 41 U/L (38-126); Anion Gap 3 mmol/L; Blood Urea Nitrogen 12 mg/dL (7-17); Calcium 8.7 mg/dL (8.4-10.2); Carbon Dioxide 27 mmol/L (22-30); Chloride 111 mmol/L (98-107); Glucose 92 mg/dL (74-99); Potassium 4.1 mmol/L (3.5-5.1); Sodium 141 mmol/L (137-145); Total Bilirubin 0.4 mg/dL (0.2-1.3); Total Protein 5.7 g/dL (6.3-8.2)
[2018-09-23] MEDS: LISINOPRIL 5 MG TAB PO SCH (11:04)
[2018-09-23] MEDS: MEMANTINE 10 MG TAB PO SCH (11:04)
[2018-09-23] MEDS: ENOXAPARIN 40 MG/0.4 ML SYRINGE SQ SCH (11:04)
[2018-09-23] MEDS: PANTOPRAZOLE 40 MG/10 ML VIAL IVP SCH (11:04)
[2018-09-23] MEDS: ATORVASTATIN 10 MG TAB PO SCH (11:04)
--- NOTE | 2018-09-23 11:34 | P.DS ---
Providers Date of admission: 09/21/18 08:17 Expected date of discharge: 09/23/18 Attending physician: Guru Finn Primary care physician: Guru Finn [facility] Course: Discharge diagnosis 1. Trouble swallowing due to food impaction. Patient underwent EGD on 09/20/2018 with GI services. During EGD fluid was gently advanced into the stomach. Per GI services continue full liquid diet at this time. Patient fol low-up in 2 weeks for possible repeat EGD with esophageal dilation due to some bleeding from the impaction site in the esophagus. Per nursing staff at this time patient is swallowing liquids without difficulty but refusing to swallow food. Per speech pathology recommending dysphagia pured diet. 2. Urinary tract infection. Patient started on Rocephin. Urine culture E. coli. Will be DC'd on Levaquin for 7 more days 3. History of advanced dementia. Patient is nonverbal. Patient is maintained on Namenda 4. History of cholecystectomy 5. Possible pneumonia. Chest x-ray completed showing new patchy left lower lobe pneumonia and atelectasis compared to earlier exam today. Antibiotic has been switched to Zosyn. Repeat chest x-ray showing improving left basal infiltrate. White blood cell count normal. Patient has been afebrile. Patient is on room air. Patient will be DC'd on Levaquin for 7 more days Hospital course This is a 77-year-old female patient who presented to the ER with complaint of food bolus. According to ER report patient has advanced dementia and was brought in by her daughter. Patient was given some hamburger per her daughter and started to choke on it. Patient since then has been unable to swallow her own saliva. Patient does have a past medical history of advanced dementia in which she is nonverbal and cholecystectomy. Chest x-ray completed showing normal chest. Patient satting 97% on room air. GI services have been consulted. Patient initial UA showing sludge. Repeat UA and culture has been ordered. Patient is currently nothing by mouth. Normal saline at 50. At this time patient has no complaints. No concerns per nursing staff. On 09/21/2018 patient currently resting in bed. Patient remains confused which is her baseline. Patient is nonverbal. Per nursing staff patient has been able to swallow liquid but refusing to swallow food. She did undergo EGD yesterday with GI services in which food impaction was gently advanced into the stomach. At This time will consult speech pathology. UA positive for UTI. Patient started on Rocephin. Urine culture ordered On 09/22/2017 patient is currently resting in chair. Patient's daughter is at bedside. Patient is at baseline. Patient was evaluated by speech pathology recommending dysphagia pured diet. Patient also had two-view chest x-ray completed this morning showing improving the left basilar infiltrate. Patient remains on Zosyn. Urine culture currently growing gram-negative bacilli. On 09/23/2018 patient is currently resting in bed. Patient is at baseline. Patient has been tolerating diet. Patient remains on room air. Patient remains afebrile. Patient has been cleared for discharge. Patient to be discharged home on his pager 1. Diet. Patient also be discharged on Levaquin for 7 more days. Urine culture showing E. coli. Chest x-ray did show improving left basal infiltrate. Patient to follow-up with PCP in 1-2 days. I performed an examination of the patient and discussed their management with the Nurse Practitioner. I have reviewed the Nurse Practitioner's notes and agree with the documented findings and plan of care Patient Condition at Discharge: Stable Plan - Discharge Summary Discharge Rx Participant: Yes New Discharge Prescriptions: New Levofloxacin [Levaquin] 500 mg PO DAILY 7 Days #7 tab Continue Memantine HCl [Namenda Xr] 28 mg PO DAILY Lisinopril [Zestril] 5 mg PO DAILY Atorvastatin [Lipitor] 10 mg PO DAILY Discharge Medication List Lisinopril [Zestril] 5 mg PO DAILY 05/15/17 [History] Memantine HCl [Namenda Xr] 28 mg PO DAILY 05/15/17 [History] Atorvastatin [Lipitor] 10 mg PO DAILY 09/20/18 [History] Levofloxacin [Levaquin] 500 mg PO DAILY 7 Days #7 tab 09/23/18 [Rx] Follow up Appointment(s)/Referral(s): Guru Finn MD [Primary Care Provider] - 1-2 days Activity/Diet/Wound Care/Special Instructions: Please arrange [facility] visiting nursing Diet dysphagia 1. Pured Activity as tolerated Discharge Disposition: HOME WITH HOME HEALTH SERVICES
== END 2018-09-23 12:26 | disposition home or self-care (01) | DRG 393 ==
LOC: EC 23:24 → 4SSUR 09-20 03:01 → OBSVTOIN 09-21 08:17
PROVIDERS: ADMIT Internal Medicine; ATTEND Internal Medicine
PROC: 0DC18ZZ Extirpation of Matter from Upper Esophagus, Via Natural or Artificial Opening Endoscopic (ICD-10-PCS; principal; 2018-09-20 11:30)
DX: T18.128A Food in esophagus causing other injury, initial encounter (principal); J18.9 Pneumonia, unspecified organism; J98.11 Atelectasis; N39.0 Urinary tract infection, site not specified; R13.10 Dysphagia, unspecified; F03.90 Unspecified dementia, unspecified severity, without behavioral disturbance, psychotic disturbance, mood disturbance, and anxiety; K22.2 Esophageal obstruction; E78.5 Hyperlipidemia, unspecified; I10 Essential (primary) hypertension; B96.20 Unspecified Escherichia coli [E. coli] as the cause of diseases classified elsewhere; Z79.82 Long term (current) use of aspirin; Z79.899 Other long term (current) drug therapy; Z90.49 Acquired absence of other specified parts of digestive tract
CPT/HCPCS: 36415; 43247; 71045; 71046; 80053; 81001; 85025; 87077; 87086; 87186; 96374; 99285

== ENCOUNTER 2019-12-08 09:57 | Observation (INO) | payer MEDICARE, OTHER ==
--- NOTE | 2019-12-08 10:16 | ED ---
General Adult HPI - General Chief complaint: Syncope Stated complaint: Syncope Time Seen by Provider: 12/08/19 10:03 Source: family, EMS, RN notes reviewed Mode of arrival: EMS Limitations: altered mental status, physical limitation - History of Present Illness Initial comments: Patient is a pleasant 79-year-old female presenting to the emergency department following syncopal episode. Episode occurred this morning. This episode lasted 2 minutes followed by a second one also lasting 2 minutes. Patient was somewhat confused for a few minutes after each episode. Patient seems to be acting normal at this point. Patient has severe dementia and entire history is taken from family who did witness the event. Patient was hunched over at her side ho wever not necessarily in pain, but was her position. - Related Data Home Medications Medication Instructions Recorded Confirmed Lisinopril [Zestril] 5 mg PO DAILY 05/15/17 12/08/19 Memantine HCl [Namenda Xr] 28 mg PO DAILY 05/15/17 12/08/19 Aspirin EC [Ecotrin Low Dose] 81 mg PO DAILY 12/08/19 12/08/19 Atorvastatin Calcium [Lipitor] 20 mg PO DAILY 12/08/19 12/08/19 Docusate [Colace] 100 mg PO BID PRN 12/08/19 12/08/19 Lactose-Reduced Food [Boost] 1 can PO BID 12/08/19 12/08/19 Multivitamins, Thera [Multivitamin 1 tab PO DAILY 12/08/19 12/08/19 (formulary)] Allergies Allergy/AdvReac Type Severity Reaction Status Date / Time acetaminophen Allergy Unknown Verified 12/08/19 12:56 [From Darvocet-N 100] cefaclor [From Ceclor] Allergy Unknown Verified 12/08/19 12:56 ciprofloxacin [From Cipro] Allergy Unknown Verified 12/08/19 12:56 doxycycline [From Vibra-Tabs] Allergy Unknown Verified 12/08/19 12:56 erythromycin base Allergy Unknown Verified 12/08/19 12:56 penicillin V Allergy Unknown Verified 12/08/19 12:56 propoxyphene Allergy Unknown Verified 12/08/19 12:56 [From Darvocet-N 100] sulfamethoxazole Allergy Unknown Verified 12/08/19 12:56 [From Bactrim] trimethoprim [From Bactrim] Allergy Unknown Verified 12/08/19 12:56 Review of Systems ROS Statement: Those systems with pertinent positive or pertinent negative responses have been documented in the HPI. ROS Other: All systems not noted in ROS Statement are negative. Limitations: ROS unobtainable due to patients medical condition Past Medical History Past Medical History: Dementia Additional Past Medical History / Comment(s): daughter poor historian History of Any Multi-Drug Resistant Organisms: None Reported Past Surgical History: Cholecystectomy Past Psychological History: No Psychological Hx Reported Smoking Status: Never smoker Past Alcohol Use History: None Reported Past Drug Use History: None Reported General Exam Limitations: altered mental status General appearance: alert, in no apparent distress Head exam: Present: atraumatic, normocephalic Eye exam: Present: normal appearance, PERRL Neck exam: Present: normal inspection Respiratory exam: Present: normal lung sounds bilaterally Cardiovascular Exam: Present: regular rate, normal rhythm GI/Abdominal exam: Present: soft. Absent: distended, tenderness, guarding, rebound, rigid, pulsatile mass Extremities exam: Present: normal inspection. Absent: pedal edema, calf tenderness Neurological exam: Present: alert Expanded Neurological exam: Present: protecting the airway Motor strength exam: RUE: 5, LUE: 5, RLE: 5 (Limited exam secondary to patient noncompliance), LLE: 5 (Limited exam secondary to patient noncompliance) Eye Response: (4) open spontaneously Motor Response: (4) withdraws to pain Verbal Response: incomprehensible sounds Psychiatric exam: Present: flat affect, other (Nonverbal) Skin exam: Present: normal color Course Vital Signs 12/08/19 12/08/19 09:58 12:04 Temperature 97.8 F Pulse Rate 58 L 56 L Respiratory 18 16 Rate Blood Pressure 98/63 108/56 O2 Sat by Pulse 95 100 Oximetry EKG Findings - EKG Comments: EKG Findings:: Sinus bradycardia 57. HI 158. QRS 110. QTc 492. QTC 478. Right axis. Septal Q waves. Low QRS voltage. No acute ST change. Medical Decision Making - Medical Decision Making Patient reevaluated and resting comfortably in bed. Dr. Finn was notified and agreeable with admission. Patient and family updated. - Lab Data Result diagrams: 12/08/19 10:42 12/08/19 10:42 Lab Results 12/08/19 12/08/19 12/08/19 Range/Units 10:42 10:42 10:42 WBC 7.5 (3.8-10.6) k/uL RBC 4.12 (3.80-5.40) m/uL Hgb 12.5 (11.4-16.0) gm/dL Hct 38.1 (34.0-46.0) % MCV 92.5 (80.0-100.0) fL MCH 30.3 (25.0-35.0) pg MCHC 32.7 (31.0-37.0) g/dL RDW 12.9 (11.5-15.5) % Plt Count 303 (150-450) k/uL Neutrophils % 65 % Lymphocytes % 25 % Monocytes % 4 % Eosinophils % 4 % Basophils % 1 % Neutrophils # 4.8 (1.3-7.7) k/uL Lymphocytes # 1.9 (1.0-4.8) k/uL Monocytes # 0.3 (0-1.0) k/uL Eosinophils # 0.3 (0-0.7) k/uL Basophils # 0.0 (0-0.2) k/uL PT 9.6 (9.0-12.0) sec INR 0.9 (<1.2) APTT 21.5 L (22.0-30.0) sec Sodium 138 (137-145) mmol/L Potassium 4.3 (3.5-5.1) mmol/L Chloride 108 H (98-107) mmol/L Carbon Dioxide 25 (22-30) mmol/L Anion Gap 5 mmol/L BUN 15 (7-17) mg/dL Creatinine 0.64 (0.52-1.04) mg/dL Est GFR (CKD-EPI)AfAm >90 (>60 ml/min/1.73 sqM) Est GFR (CKD-EPI)NonAf 86 (>60 ml/min/1.73 sqM) Glucose 112 H (74-99) mg/dL Calcium 9.0 (8.4-10.2) mg/dL Total Bilirubin 0.3 (0.2-1.3) mg/dL AST 17 (14-36) U/L ALT 8 (4-34) U/L Alkaline Phosphatase 50 (38-126) U/L Troponin I (0.000-0.034) ng/mL Total Protein 6.5 (6.3-8.2) g/dL Albumin 3.5 (3.5-5.0) g/dL Urine Color Urine Appearance (Clear) Urine pH (5.0-8.0) Ur Specific [place] (1.001-1.035) Urine Protein (Negative) Urine Glucose (UA) (Negative) Urine Ketones (Negative) Urine Blood (Negative) Urine Nitrite (Negative) Urine Bilirubin (Negative) Urine Urobilinogen (<2.0) mg/dL Ur Leukocyte Esterase (Negative) Urine RBC (0-5) /hpf Urine WBC (0-5) /hpf Urine WBC Clumps (None) /hpf Ur Squamous Epith Cells (0-4) /hpf Urine Bacteria (None) /hpf Urine Mucus (None) /hpf 12/08/19 12/08/19 Range/Units 10:42 12:22 WBC (3.8-10.6) k/uL RBC (3.80-5.40) m/uL Hgb (11.4-16.0) gm/dL Hct (34.0-46.0) % MCV (80.0-100.0) fL MCH (25.0-35.0) pg MCHC (31.0-37.0) g/dL RDW (11.5-15.5) % Plt Count (150-450) k/uL Neutrophils % % Lymphocytes % % Monocytes % % Eosinophils % % Basophils % % Neutrophils # (1.3-7.7) k/uL Lymphocytes # (1.0-4.8) k/uL Monocytes # (0-1.0) k/uL Eosinophils # (0-0.7) k/uL Basophils # (0-0.2) k/uL PT (9.0-12.0) sec INR (<1.2) APTT (22.0-30.0) sec Sodium (137-145) mmol/L Potassium (3.5-5.1) mmol/L Chloride (98-107) mmol/L Carbon Dioxide (22-30) mmol/L Anion Gap mmol/L BUN (7-17) mg/dL Creatinine (0.52-1.04) mg/dL Est GFR (CKD-EPI)AfAm (>60 ml/min/1.73 sqM) Est GFR (CKD-EPI)NonAf (>60 ml/min/1.73 sqM) Glucose (74-99) mg/dL Calcium (8.4-10.2) mg/dL Total Bilirubin (0.2-1.3) mg/dL AST (14-36) U/L ALT (4-34) U/L Alkaline Phosphatase (38-126) U/L Troponin I <0.012 (0.000-0.034) ng/mL Total Protein (6.3-8.2) g/dL Albumin (3.5-5.0) g/dL Urine Color Yellow Urine Appearance Cloudy H (Clear) Urine pH 5.5 (5.0-8.0) Ur Specific [place] 1.012 (1.001-1.035) Urine Protein Negative (Negative) Urine Glucose (UA) Negative (Negative) Urine Ketones Negative (Negative) Urine Blood Trace H (Negative) Urine Nitrite Positive H (Negative) Urine Bilirubin Negative (Negative) Urine Urobilinogen <2.0 (<2.0) mg/dL Ur Leukocyte Esterase Large H (Negative) Urine RBC 2 (0-5) /hpf Urine WBC 97 H (0-5) /hpf Urine WBC Clumps Many H (None) /hpf Ur Squamous Epith Cells <1 (0-4) /hpf Urine Bacteria Occasional H (None) /hpf Urine Mucus Occasional H (None) /hpf - Radiology Data Radiology results: report reviewed (Computed tomography scan of the brain shows degenerative and nonspecific changes.), image reviewed (Chest x-ray shows no acute) Disposition Clinical Impression: Syncope Disposition: ADMITTED IP TO THIS HOSP Is patient prescribed a controlled substance at d/c from ED?: No Referrals: Guru Finn MD [Primary Care Provider] - 1-2 days Decision Time: 13:44
[2019-12-08 11:02] LABS: Basophils % (A) 1 %; Eosinophils # (A) 0.3 k/uL (0-0.7); Eosinophils % (A) 4 %; HCT 38.1 % (34.0-46.0); HGB 12.5 gm/dL (11.4-16.0); Lymphocytes # (A) 1.9 k/uL (1.0-4.8); Lymphocytes % (A) 25 %; MCH 30.3 pg (25.0-35.0); MCHC 32.7 g/dL (31.0-37.0); MCV 92.5 fL (80.0-100.0); Mean Platelet Volume 8.7; Monocytes # (A) 0.3 k/uL (0-1.0); Monocytes % (A) 4 %; Neutrophils # (A) 4.8 k/uL (1.3-7.7); Neutrophils % (A) 65 %; Platelet Count 303 k/uL (150-450); RBC 4.12 m/uL (3.80-5.40); RDW 12.9 % (11.5-15.5); WBC 7.5 k/uL (3.8-10.6)
[2019-12-08 11:20] LABS: INR 0.9 (<1.2); Prothrombin Time 9.6 sec (9.0-12.0)
[2019-12-08 11:27] LABS: Partial Thromboplastin Time 21.5 sec (22.0-30.0)
--- NOTE | 2019-12-08 11:28 | XR ---
EXAMINATION TYPE: XR chest 1V DATE OF EXAM: 12/08/2019 COMPARISON: 09/22/2018 HISTORY: Syncope TECHNIQUE: Single frontal view of the chest is obtained. FINDINGS: Biapical pleural thickening. No overt failure. Arthropathy of the shoulders. Diffuse osteo penia. IMPRESSION: No acute process.
[2019-12-08 11:33] LABS: ALT 8 U/L (4-34); AST 17 U/L (14-36); African American GFR (CKD) >90 (>60 ml/min/1.73 sqM); Albumin 3.5 g/dL (3.5-5.0); Alkaline Phosphatase 50 U/L (38-126); Anion Gap 5 mmol/L; Blood Urea Nitrogen 15 mg/dL (7-17); Carbon Dioxide 25 mmol/L (22-30); Chloride 108 mmol/L (98-107); Glucose 112 mg/dL (74-99); Non-African American GFR(CKD) 86 (>60 ml/min/1.73 sqM); Potassium 4.3 mmol/L (3.5-5.1); Sodium 138 mmol/L (137-145); Total Bilirubin 0.3 mg/dL (0.2-1.3); Total Protein 6.5 g/dL (6.3-8.2)
--- NOTE | 2019-12-08 11:37 | CT ---
EXAMINATION TYPE: CT brain wo con DATE OF EXAM: 12/08/2019 COMPARISON: 07/29/2013 HISTORY: Syncope CT DLP: 1074.4 mGycm Automated exposure control for dose reduction was used. FINDINGS: Moderate generalized degenerative change with low attenuation in the white matter. Hyperostosis of th e calvarium. No acute hemorrhage. Atherosclerotic change of the vasculature. No midline shift or mass effect. IMPRESSION: DEGENERATIVE AND NONSPECIFIC WHITE MATTER CHANGES MOST TYPICAL OF REMOTE ISCHEMIA. CORRELATE CLINICAL LY.
[2019-12-08 12:46] LABS: Appearance,Urine Cloudy (Clear); Bacteria,Urine Occasional /hpf; Bilirubin,Urine Negative (Negative); Blood,Urine Trace (Negative); Color,Urine Yellow; Glucose,Urine (UA) Negative (Negative); Ketones,Urine Negative (Negative); Leukocyte Esterase,Urine Large (Negative); Mucus,Urine Occasional /hpf; Nitrite,Urine Positive (Negative); PH, Urine 5.5 (5.0-8.0); Protein,Urine Negative (Negative); RBC,Urine 2 /hpf (0-5); Specific Gravity,Urine 1.012 (1.001-1.035); Squamous Epithelial Cell,Urine <1 /hpf (0-4); Urobilinogen,Urine <2.0 mg/dL (<2.0); WBC,Urine 97 /hpf (0-5)
[2019-12-08] MEDS ORDERED: SODIUM CHLORIDE 0.9% 1,000 ML IV SCH (13:45)
[2019-12-08] MEDS ORDERED: NALOXONE 0.4 MG/ML 1 ML VIAL IV PRN (13:45)
--- NOTE | 2019-12-08 18:50 | P.HPIM ---
History of Present Illness H&P Date: 12/08/19 Mary hinkle is a 79-year-old female who presented to [facility] after having a syncopal episode, patient has a previous history of stroke with significant mental status changes patient has been nonverbal for years, no significant review of system couldn't be obtained, emergency room records were reviewed in details. Past Medical History Past Medical History: Dementia, Hyperlipidemia, Hypertension, Syncope Additional Past Medical History / Comment(s): Nonverbal, dysphagia/food impaction-pureed diet/crush pills and place in applesauce, constipation, incontinence of urine and stool, UTI, bronchitits, History of Any Multi-Drug Resistant Organisms: None Reported Past Surgical History: Cholecystectomy, Hysterectomy Additional Past Surgical History / Comment(s): EGD Past Anesthesia/Blood Transfusion Reactions: No Reported Reaction Past Psychological History: No Psychological Hx Reported Additional Psychological History / Comment(s): Pt has dementia. She resides with her donna who is her caregiver. She walks holding onto her donna. She has dysphagia-she is on a pureed diet, crush meds and place in applesauce. Smoking Status: Never smoker Past Alcohol Use History: None Reported Past Drug Use History: None Reported - Past Family History Father Family Medical History: Myocardial Infarction ([place]) Additional Family Medical History / Comment(s): Father of a [place] in his 60s. Mother Family Medical History: No Reported History Additional Family Medical History / Comment(s): Mother was healthy Medications and Allergies Home Medications Medication Instructions Recorded Confirmed Type Lisinopril [Zestril] 5 mg PO DAILY 05/15/17 12/08/19 History Memantine HCl [Namenda Xr] 28 mg PO DAILY 05/15/17 12/08/19 History Aspirin EC [Ecotrin Low Dose] 81 mg PO DAILY 12/08/19 12/08/19 History Atorvastatin Calcium [Lipitor] 20 mg PO DAILY 12/08/19 12/08/19 History Docusate [Colace] 100 mg PO BID PRN 12/08/19 12/08/19 History Lactose-Reduced Food [Boost] 1 can PO BID 12/08/19 12/08/19 History Multivitamins, Thera [Multivitamin 1 tab PO DAILY 12/08/19 12/08/19 History (formulary)] Allergies Allergy/AdvReac Type Severity Reaction Status Date / Time acetaminophen Allergy Unknown Verified 12/08/19 12:56 [From Darvocet-N 100] cefaclor [From Ceclor] Allergy Unknown Verified 12/08/19 12:56 ciprofloxacin [From Cipro] Allergy Unknown Verified 12/08/19 12:56 doxycycline [From Vibra-Tabs] Allergy Unknown Verified 12/08/19 12:56 erythromycin base Allergy Unknown Verified 12/08/19 12:56 penicillin V Allergy Unknown Verified 12/08/19 12:56 propoxyphene Allergy Unknown Verified 12/08/19 12:56 [From Darvocet-N 100] sulfamethoxazole Allergy Unknown Verified 12/08/19 12:56 [From Bactrim] trimethoprim [From Bactrim] Allergy Unknown Verified 12/08/19 12:56 Physical Exam Vitals: Vital Signs Temp Pulse Pulse Resp BP BP Pulse Ox 12/08/19 17:20 98 F 70 18 133/97 91 L 12/08/19 16:24 59 L 16 113/67 97 12/08/19 14:39 55 L 18 97/78 98 12/08/19 12:04 56 L 16 108/56 100 12/08/19 09:58 97.8 F 58 L 18 98/63 95 Intake and Output 12/08/19 12/08/19 12/08/19 06:59 14:59 22:59 Intake Total 90 Balance 90 Intake: Oral 90 Other: # Voids 1 Weight 68.039 kg 68.039 kg In general patient is alert nonverbal, in no apparent distress, being fed one on one by aid HEENT head normocephalic and atraumatic Neck is supple no JVD no goiter no lymphadenopathy Chest exam reveals a few scattered crackles no wheezing Cardiac exam reveals regular heart sounds no gallops no murmurs Abdomen is soft nontender no organomegaly with normal bowel sounds Extremity exam reveals no edema no cyanosis or clubbing Neurological exam patient is nonverbal moving all 4 extremities spontaneously Results CBC & Chem 7: 12/08/19 10:42 12/08/19 10:42 Labs: Abnormal Lab Results - Last 24 Hours (Table) 12/08/19 12/08/19 12/08/19 Range/Units 10:42 10:42 12:22 APTT 21.5 L (22.0-30.0) sec Chloride 108 H (98-107) mmol/L Glucose 112 H (74-99) mg/dL Urine Appearance Cloudy H (Clear) Urine Blood Trace H (Negative) Urine Nitrite Positive H (Negative) Ur Leukocyte Esterase Large H (Negative) Urine WBC 97 H (0-5) /hpf Urine WBC Clumps Many H (None) /hpf Urine Bacteria Occasional H (None) /hpf Urine Mucus Occasional H (None) /hpf Thrombosis Risk Factor Assmnt - Choose All That Apply Any of the Below Risk Factors Present?: Yes Other Risk Factors: Yes Each Risk Factor Represents 3 Points: Age 75 years or older Other congenital or acquired thrombophilia - If yes, enter type in comment: No Thrombosis Risk Factor Assessment Total Risk Factor Score: 3 Thrombosis Risk Factor Assessment Level: Moderate Risk Assessment and Plan Plan: 1. Syncopal episode, at this time patient is admitted to telemetry to rule out cardiac arrhythmia, check echocardiogram check carotid Doppler, consultation for cardiology and neurology was initiated 2. Previous history of stroke with mental status changes patient has been nonverbal for years 3. Underlying history of hypertension 4. Underlying history of hyperlipidemia 5. Underlying history of dementia At this time patient is admitted to telemetry floor cardiology consultation and neurology consultation requested Will check echocardiogram and carotid Doppler For DVT prophylaxis will use subcu Lovenox for GI prophylaxis we will use Protonix
[2019-12-08] MEDS ORDERED: ENOXAPARIN 40 MG/0.4 ML SYRINGE SQ SCH (19:00)
[2019-12-08 19:49] VITALS: RESP 16
--- NOTE | 2019-12-08 20:55 | US ---
EXAMINATION TYPE: US carotid duplex BILAT DATE OF EXAM: 12/08/2019 COMPARISON: CT, US CLINICAL HISTORY: syncope. Syncope. Patient is very confused. Poor historian. EXAM MEASUREMENTS: RIGHT: Peak Systolic Velocity (PSV) cm/sec ----- Right CCA: 86.9 ----- Right ICA: 79.0 ----- Right ECA: 73.2 ICA/CCA ratio: 0.9 RIGHT: End Diastole cm/sec ----- Right CCA: 15.1 ----- Right ICA: 16.4 ----- Right ECA: 11.7 LEFT: Peak Systolic Velocity (PSV) cm/sec ----- Left CCA: 83.8 ----- Left ICA: 81.3 ----- Left ECA: 89.7 ICA/CCA ratio: 1.0 LEFT: End Diastole cm/sec ----- Left CCA: 11.8 ----- Left ICA: 14.6 ----- Left ECA: 7.3 VERTEBRALS (direction of flow): Right Vertebral: Not seen Left Vertebral: Not seen Rhythm: Normal Very limited exam due to constant patient movement. Homogeneous plaque seen bilaterally. No elevated velocities obtained at this time. IMPRESSION: Limited exam. Vertebral arteries not identified. Images and measurements suggest less than 20% stenosis in both internal carotid arteries. Criteria for Assigning % of Stenosis / Diameter reduction (Estimation based on the indirect measurements of the internal carotid artery velocities (ICA PSV). 1. Normal (no stenosis)=ICA PSV < 125 cm/s: ratio < 2.0: ICA EDV<40 cm/s. 2. Less than 50% stenosis=ICA PSV < 125 cm/s: ratio < 2.0: ICA EDV<40 cm/s. 3. 50 to 69% stenosis=ICA PSV of 125 to 230 cm/s: ration 2.0 ? 4.0: ICA EDV 40-100 cm/s. 4. Greater than 70% stenosis to near occlusion= ICA PSV > 230 cm/s: ratio > 4.0: ICA EDV > 100 cm/s. 5. Near occlusion= ICA PSV velocities may be low or undetectable: variable ratio and ICA EDV. 6. Total occlusion=unable to detect flow.
[2019-12-09 03:33] VITALS: PULSE 59
[2019-12-09] MEDS ORDERED: PANTOPRAZOLE 40 MG TABLET PO SCH (07:30)
[2019-12-09 11:47] VITALS: BP 108/47; TEMP 97.8
[2019-12-09 12:03] VITALS: BMI 25.1
--- NOTE | 2019-12-09 12:11 | ECHOF ---
Referral Reason:syncope MEASUREMENTS -------- HEIGHT: 165.1 cm WEIGHT: 68.5 kg BP: RVIDd: 2.4 cm (< 3.3) IVSd: 1.0 cm (0.6 - 1.1) LVIDd: 3.2 cm (3.9 - 5.3) LVPWd: 0.9 cm (0.6 - 1.1) IVSs: 1.3 cm LVIDs: 1.8 cm LVPWs: 1.1 cm LAESV Index (A-L): 15.25 ml/m Ao Diam: 2.2 cm (2.0 - 3.7) AV Cusp: 1.8 cm (1.5 - 2.6) LA Diam: 2.4 cm (2.7 - 3.8) MV EXCURSION: 12.148 mm (> 18.000) MV EF SLOPE: 45 mm/s (70 - 150) EPSS: 0.5 cm MV E Howard: 0.68 m/s MV DecT: 225 ms MV A Howard: 0.72 m/s MV E/A Ratio: 0.94 RAP: 5.00 mmHg RVSP: 9.49 mmHg FINDINGS -------- Sinus rhythm. This was a technically adequate study. The left ventricular size is normal. Left ventricular wall thickness is normal. Overall left vent ricular systolic function is normal with, an EF between 55 - 60 %. The diastolic filling pattern is normal for the age of the patient 11.99. The right ventricle is normal in size. The left atrial size is normal. Normal LA size by volume 22+/-6 ml/m2. The right atrial size is normal. The aortic valve is trileaflet and appears structurally normal. The mitral valve is normal. There is trace mitral regurgitation. The tricuspid valve appears structurally normal. Trace tricuspid regurgitation present. Right gregg tricular systolic pressure is normal at < 35 mmHg. There is no pulmonic regurgitation present. The aortic root size is normal. IVC Not well visulized. There is no pericardial effusion. CONCLUSIONS -------- 1. Sinus rhythm. 2. This was a technically adequate study. 3. The left ventricular size is normal. 4. Left ventricular wall thickness is normal. 5. Overall left ventricular systolic function is normal with, an EF between 55 - 60 %. 6. The diastolic filling pattern is normal for the age of the patient 11.99 7. The right ventricle is normal in size. 8. The left atrial size is normal. 9. Normal LA size by volume 22+/-6 ml/m2. 10. The right atrial size is normal. 11. The aortic valve is trileaflet and appears structurally normal. 12. The mitral valve is normal. 13. There is trace mitral regurgitation. 14. The tricuspid valve appears structurally normal. 15. Trace tricuspid regurgitation present. 16. Right ventricular systolic pressure is normal at < 35 mmHg. 17. There is no pulmonic regurgitation present. 18. The aortic root size is normal. 19. IVC Not well visulized. 20. There is no pericardial effusion. PRINTING MECHANIST: Mary Dan RDCS
--- NOTE | 2019-12-09 12:34 | EEG ---
ELECTROENCEPHALOGRAM REPORT DATE OF SERVICE: 12/09/2019. PREAMBLE: This is a 79-year-old female with recurrent syncopal spells. The patient has history of dementia. This study is performed to evaluate for any epileptiform activity. EEG FINDINGS: This is a 21 channel routine EEG recording in a patient utilizing 10/20 international system with bipolar and referential montages. The background consists of well- developed, but not very well regulated, mixed frequencies of 8-9 Hz alpha with some theta activity. Background seems to be minimally reactive to eye opening and closing. The patient was noted to be in stage 2 sleep in the beginning of the study with presence of some sleep spindles. Deeper stages of sleep were not seen. No focal or generalized epileptiform activity was seen. Photic stimulation was not performed. EKG rhythm lead revealed no arrhythmia. IMPRESSION: This is a normal EEG for patient's age, during wakefulness, drowsiness and brief stage 2 sleep. No epileptiform activity was seen. MMSONYAL / JESSEN: [id number] / [facility]ER CENTERBrad
--- NOTE | 2019-12-09 13:04 | CONS ---
KRIAG Hernandez is a 79-year-old lady that is admitted to the hospital having had an episode of syncope at home. Her history is significant for prior CVA. Past medical history is significant for hypertension, dementia, dyslipidemia, syncope. She comes in this time having had a change in her mental status and apparently having a syncope. On my evaluation, she appears pleasantly confused and is noncommunicative, does not respond to any questions. PAST MEDICAL HISTORY: Significant for dementia, hypertension, dyslipidemia, syncope. PAST SURGICAL HISTORY: Significant for cholecystectomy and hysterectomy. MEDICATIONS: Include lisinopril, Namenda, aspirin, atorvastatin. SHE HAS MULTIPLE DRUG ALLERGIES, THEY ARE CHARTED. Family history, social history and review of systems: I am unable to obtain from the patient who is not communicative. EXAM: Afebrile. Heart rate is 60 beats per minute. Blood pressure is 104/60, respirations 18. There is no jugular venous distention. Carotid upstroke is normal. There is no bruit. Chest exam reveals good air entry bilaterally. Heart exam reveals first and second heart sounds. No gallop. Systolic murmur at the apex. Abdomen soft. Exam of extremities did not reveal any edema. Peripheral pulses are felt. LABS: Show a potassium of 4.3, creatinine 0.6, hemoglobin is 12.5, platelet count is 303. Troponin x3 is negative. EKG shows sinus bradycardia with evidence of prior anteroseptal myocardial infarction and right axis deviation. ASSESSMENT: Syncope, rule out cardiac causes. PLAN: So far the patient did not have any documented tachy or bradyarrhythmias. Troponins are negative. She is not anemic. There is no evidence of acute bleed at this time. We will continue to watch her. We will obtain an echo and will decide on further course of action based on how she evolves. MMODL / IJN: [id number] /
--- NOTE | 2019-12-09 13:43 | P.DS ---
Providers Date of admission: 12/08/19 13:45 Expected date of discharge: 12/09/19 Attending physician: Guru Finn Consults: 12/08/19 13:45 Consult Physician Urgent Consulting Provider: Meño Davis Consult Reason/Comments: syncope Do you want consulting provider notified?: Yes 12/08/19 18:42 Consult Physician Routine Consulting Provider: Jumana Soler Consult Reason/Comments: syncope Do you want consulting provider notified?: Yes 12/09/19 10:27 Consult Physician Routine Consulting Provider: Jeremiah Humphrey Consult Reason/Comments: UTI, multiple allergies Do you want consulting provider notified?: Yes Primary care physician: Guru Huma [facility] Course: Diagnosis on discharge: 1. Syncopal episode, at this time patient is admitted to telemetry to rule out cardiac arrhythmia, check echocardiogram check carotid Doppler, consultation for cardiology and neurology was initiated 2. Previous history of stroke with mental status changes patient has been nonverbal for years 3. Underlying history of hypertension 4. Underlying history of hyperlipidemia 5. Underlying history of dementia Hospital course: Mary hinkle is a 79-year-old female who presented to [facility] after having a syncopal episode, patient has a previous history of stroke with significant mental status changes patient has been nonverbal for years, no significant review of system couldn't be obtained, emergency room records were reviewed in details. On 12/09/2019 patient was seen and examined on the telemetry floor she is alert and responsive in no apparent distress she answers a few questions by yes or no then she is nonverbal exam, patient had an echocardiogram and carotid Doppler and EEG she was seen by neurology and by cardiology, I personally spoke was Dr. Salazar neurologist and was Dr. Davis natural resources specialist, patient was cleared by both of them for discharge, no change in medication was recommended Plan - Discharge Summary Discharge Rx Participant: No New Discharge Prescriptions: Continue Memantine HCl [Namenda Xr] 28 mg PO DAILY Lisinopril [Zestril] 5 mg PO DAILY Multivitamins, Thera [Multivitamin (formulary)] 1 tab PO DAILY Docusate [Colace] 100 mg PO BID PRN PRN Reason: Constipation Atorvastatin Calcium [Lipitor] 20 mg PO DAILY Aspirin EC [Ecotrin Low Dose] 81 mg PO DAILY Lactose-Reduced Food [Boost] 1 can PO BID Discharge Medication List Lisinopril [Zestril] 5 mg PO DAILY 05/15/17 [History] Memantine HCl [Namenda Xr] 28 mg PO DAILY 05/15/17 [History] Aspirin EC [Ecotrin Low Dose] 81 mg PO DAILY 12/08/19 [History] Atorvastatin Calcium [Lipitor] 20 mg PO DAILY 12/08/19 [History] Docusate [Colace] 100 mg PO BID PRN 12/08/19 [History] Lactose-Reduced Food [Boost] 1 can PO BID 12/08/19 [History] Multivitamins, Thera [Multivitamin (formulary)] 1 tab PO DAILY 12/08/19 [History] Follow up Appointment(s)/Referral(s): Guru Finn MD [Primary Care Provider] - 1-2 days
--- NOTE | 2019-12-09 14:06 | P.CNNES ---
History of Present Illness Consult date: 12/09/19 Requesting physician: Guru Finn Reason for Consult: Syncope History of Present Illness: Patient is a 79-year-old female came to the ER for altered mental status and syncopal spell. Patient has history of severe dementia, not able to provide any history. I spoke to patient's daughter, who provided all the history. Patient lives with her daughter. Patient daughter took her to the shower. She was in the shower, standing for about 5 minutes, she got her out of the shower, and patient's daughter was getting her dressed, still in standing position. Suddenly she did not look right, appeared to be pale, started slumping down. Patient's daughter sat her down on the floor. She was not responding as well. Patient did shook a little, and was drooling. By the time EMS came, patient was giggling but still appeared pale. Patient seemed to be acting normal afterwards. Patient's vitals on the scene was 98/56, pulse rate 64 respirations 20 and saturation 99% temperature 98.8. Repeat blood pressure was 98/57. Patient was brought to the hospital. Her blood pressure on arrival was also 98/63 and pulse rate of 58. Patient underwent Chest x-ray showed no acute process. Computed tomography scan of the head showed degenerative and nonspecific white matter changes most typical of remote ischemia. Correlate clinically. EKG shows sinus bradycardia, right axis deviation. Carotid Doppler showed no significant stenosis of the internal carotid arteries. Vertebral arteries were not identified. Patient's UA showed positive nitrite, large leukocyte esterase, WBC clumps many. Occasional bacteria. CBC with differential normal. Chem-7 normal, liver panel normal. 2-D echo shows sinus rhythm. Left ventricle size is normal. EF is 55- 60%. Left atrial size normal. Patient has history of advanced dementia. The symptoms of dementia started in 2011. Patient has been nonverbal for almost last 4 years, lives with her daughter. Patient had a syncopal spell in 2013 when she was involved aicha and passed out. No history of seizures. Review of Systems ROS unobtainable: due to mental status Past Medical History Past Medical History: Dementia, Hyperlipidemia, Hypertension, Syncope Additional Past Medical History / Comment(s): Nonverbal, dysphagia/food impaction-pureed diet/crush pills and place in applesauce, constipation, incontinence of urine and stool, UTI, bronchitits, History of Any Multi-Drug Resistant Organisms: None Reported Past Surgical History: Cholecystectomy, Hysterectomy Additional Past Surgical History / Comment(s): EGD Past Anesthesia/Blood Transfusion Reactions: No Reported Reaction Past Psychological History: No Psychological Hx Reported Additional Psychological History / Comment(s): Pt has dementia. She resides wit h her donna who is her caregiver. She walks holding onto her donna. She has dysphagia-she is on a pureed diet, crush meds and place in applesauce. Smoking Status: Never smoker Past Alcohol Use History: None Reported Past Drug Use History: None Reported - Past Family History Father Family Medical History: Myocardial Infarction ([place]) Additional Family Medical History / Comment(s): Father of a [place] in his 60s. Mother Family Medical History: No Reported History Additional Family Medical History / Comment(s): Mother was healthy Medications and Allergies Home Medications Medication Instructions Recorded Confirmed Type Lisinopril [Zestril] 5 mg PO DAILY 05/15/17 12/08/19 History Memantine HCl [Namenda Xr] 28 mg PO DAILY 05/15/17 12/08/19 History Aspirin EC [Ecotrin Low Dose] 81 mg PO DAILY 12/08/19 12/08/19 History Atorvastatin Calcium [Lipitor] 20 mg PO DAILY 12/08/19 12/08/19 History Docusate [Colace] 100 mg PO BID PRN 12/08/19 12/08/19 History Lactose-Reduced Food [Boost] 1 can PO BID 12/08/19 12/08/19 History Multivitamins, Thera [Multivitamin 1 tab PO DAILY 12/08/19 12/08/19 History (formulary)] Allergies Allergy/AdvReac Type Severity Reaction Status Date / Time acetaminophen Allergy Unknown Verified 12/08/19 12:56 [From Darvocet-N 100] cefaclor [From Ceclor] Allergy Unknown Verified 12/08/19 12:56 ciprofloxacin [From Cipro] Allergy Unknown Verified 12/08/19 12:56 doxycycline [From Vibra-Tabs] Allergy Unknown Verified 12/08/19 12:56 erythromycin base Allergy Unknown Verified 12/08/19 12:56 penicillin V Allergy Unknown Verified 12/08/19 12:56 propoxyphene Allergy Unknown Verified 12/08/19 12:56 [From Darvocet-N 100] sulfamethoxazole Allergy Unknown Verified 12/08/19 12:56 [From Bactrim] trimethoprim [From Bactrim] Allergy Unknown Verified 12/08/19 12:56 Physical Examination - Vital Signs Vital Signs: Vital Signs Temp Pulse Pulse Resp BP BP Pulse Ox 12/09/19 11:44 97.8 F 47 L 16 108/47 98 12/09/19 08:00 98.2 F 53 L 16 108/52 97 12/09/19 03:30 98.5 F 59 L 16 104/61 97 12/08/19 22:55 57 L 16 105/60 99 12/08/19 19:44 98.8 F 57 L 16 105/71 97 12/08/19 17:20 98 F 70 18 133/97 91 L 12/08/19 16:24 59 L 16 113/67 97 12/08/19 14:39 55 L 18 97/78 98 Intake and Output 12/08/19 12/09/19 12/09/19 22:59 06:59 14:59 Intake Total 90 Balance 90 Intake: Oral 90 Other: Voiding Method Incontinent Incontinent # Voids 1 2 Weight 68.039 kg 68.5 kg 68.5 kg On examination patient is an elderly female, laying comfortably in the bed. She sometimes moans. She mumbles. Patient is nonverbal related to severe dementia. Her pupils are round and reacting, visual dutton could not be tested. Face appears symmetric. Hearing and shoulder shrug could not be tested. Tone is equal slightly increased. She has equal tone in the arms and legs. Biceps and triceps appears normal. She does wiggle her feet and moves her legs on plantar stimulation. Reflexes are 1+. Sensations are equal. Cerebellar functions could not be tested. Muscle strength could not be tested. No obvious bruit, S1 and S2 audible. Results - Laboratory Findings CBC and BMP: 12/08/19 10:42 12/08/19 10:42 Abnormal Lab Findings: Abnormal Labs 12/08/19 12/08/19 12/08/19 10:42 10:42 12:22 APTT 21.5 L Chloride 108 H Glucose 112 H Urine Appearance Cloudy H Urine Blood Trace H Urine Nitrite Positive H Ur Leukocyte Esterase Large H Urine WBC 97 H Urine WBC Clumps Many H Urine Bacteria Occasional H Urine Mucus Occasional H Assessment and Plan Assessment: * Syncopal spell, likely vasovagal. Patient was mildly hypotensive on arrival of EMS. Patient also has possible UTI, contributing to the syncopal spell. * Advanced dementia. Plan: * Patient had an EEG, which was normal for her age. * Hydration * UA was abnormal, with possible UTI. Consider treatment with antibiotic if medically indicated.
== END 2019-12-09 16:00 | disposition home or self-care (01) ==
LOC: EC 09:57 → 3SCARD 13:45
PROVIDERS: ADMIT Internal Medicine; ATTEND Internal Medicine
DX: R55 Syncope and collapse (principal); F03.90 Unspecified dementia, unspecified severity, without behavioral disturbance, psychotic disturbance, mood disturbance, and anxiety; I69.393 Ataxia following cerebral infarction; I69.398 Other sequelae of cerebral infarction; R41.82 Altered mental status, unspecified; R13.10 Dysphagia, unspecified; R82.90 Unspecified abnormal findings in urine; Z03.818 Encounter for observation for suspected exposure to other biological agents ruled out; E78.5 Hyperlipidemia, unspecified; I10 Essential (primary) hypertension; R00.1 Bradycardia, unspecified; R15.9 Full incontinence of feces; R32 Unspecified urinary incontinence; K59.00 Constipation, unspecified; I95.9 Hypotension, unspecified; Z79.82 Long term (current) use of aspirin; Z79.899 Other long term (current) drug therapy; Z88.0 Allergy status to penicillin; Z88.1 Allergy status to other antibiotic agents; Z88.2 Allergy status to sulfonamides; Z88.5 Allergy status to narcotic agent; Z88.6 Allergy status to analgesic agent; Z88.8 Allergy status to other drugs, medicaments and biological substances; Z90.49 Acquired absence of other specified parts of digestive tract; Z90.710 Acquired absence of both cervix and uterus; Z87.440 Personal history of urinary (tract) infections; Z87.09 Personal history of other diseases of the respiratory system; I25.2 Old myocardial infarction; Z82.49 Family history of ischemic heart disease and other diseases of the circulatory system
CPT/HCPCS: 96372; 99285; 36415; 95816; 93005; 93306; 80053; 84484 ×2; 85025; 85610; 85730; 81001; 71045; 93880; 70450; G0378 ×2; U0003; J1650

== ENCOUNTER 2020-03-17 20:11 | Emergency (ER) | payer MEDICARE, OTHER ==
[2020-03-17] MEDS ORDERED: SODIUM CHLORIDE 0.9% 1,000 ML IV STA (20:31)
[2020-03-17] MEDS ORDERED: MORPHINE SULFATE 4 MG/ML SYRINGE IV STA (20:31)
--- NOTE | 2020-03-17 20:33 | ED ---
Weakness HPI - General Chief complaint: Shortness of Breath Stated complaint: Difficulty Breathing Time Seen by Provider: 03/17/20 20:13 Source: EMS, RN notes reviewed, old records reviewed Mode of arrival: EMS Limitations: no limitations - History of Present Illness Initial comments: This is a 71-year-old female presented today for evaluation regarding not acting her normal. Patient has severe dementia is unable to speak and I will answer questions. Members at bedside states patient started making noises that she does not usually make MD Complaint: generalized weakness -: minutes(s) Location: generalized Severity: mild Improves with: none Worsens with: none Context: history of similar Associated Symptoms: denies other symptoms - Related Data Home Medications Medication Instructions Recorded Confirmed Memantine HCl [Namenda Xr] 28 mg PO DAILY 05/15/17 12/08/19 lisinopriL [Zestril] 5 mg PO DAILY 05/15/17 12/08/19 Aspirin EC [Ecotrin Low Dose] 81 mg PO DAILY 12/08/19 12/08/19 Atorvastatin Calcium [Lipitor] 20 mg PO DAILY 12/08/19 12/08/19 Docusate [Colace] 100 mg PO BID PRN 12/08/19 12/08/19 Lactose-Reduced Food [Boost] 1 can PO BID 12/08/19 12/08/19 Multivitamins, Thera [Multivitamin 1 tab PO DAILY 12/08/19 12/08/19 (formulary)] Allergies Allergy/AdvReac Type Severity Reaction Status Date / Time acetaminophen Allergy Unknown Verified 03/17/20 20:25 [From Darvocet-N 100] cefaclor [From Ceclor] Allergy Unknown Verified 03/17/20 20:25 ciprofloxacin [From Cipro] Allergy Unknown Verified 03/17/20 20:25 doxycycline [From Vibra-Tabs] Allergy Unknown Verified 03/17/20 20:25 erythromycin base Allergy Unknown Verified 03/17/20 20:25 penicillin V Allergy Unknown Verified 03/17/20 20:25 propoxyphene Allergy Unknown Verified 03/17/20 20:25 [From Darvocet-N 100] sulfamethoxazole Allergy Unknown Verified 03/17/20 20:25 [From Bactrim] trimethoprim [From Bactrim] Allergy Unknown Verified 03/17/20 20:25 Review of Systems ROS Statement: Those systems with pertinent positive or pertinent negative responses have been documented in the HPI. ROS Other: All systems not noted in ROS Statement are negative. Past Medical History Past Medical History: Dementia, Hyperlipidemia, Hypertension, Syncope Additional Past Medical History / Comment(s): Nonverbal, dysphagia/food impactio n-pureed diet/crush pills and place in applesauce, constipation, incontinence of urine and stool, UTI, bronchitits, History of Any Multi-Drug Resistant Organisms: None Reported Past Surgical History: Cholecystectomy, Hysterectomy Additional Past Surgical History / Comment(s): EGD Past Anesthesia/Blood Transfusion Reactions: No Reported Reaction Past Psychological History: No Psychological Hx Reported Smoking Status: Never smoker Past Alcohol Use History: None Reported Past Drug Use History: None Reported - Past Family History Father Family Medical History: Myocardial Infarction ([place]) Additional Family Medical History / Comment(s): Father of a [place] in his 60s. Mother Family Medical History: No Reported History Additional Family Medical History / Comment(s): Mother was healthy General Exam Limitations: no limitations General appearance: alert, in no apparent distress Head exam: Present: atraumatic, normocephalic, normal inspection Eye exam: Present: normal appearance, PERRL, EOMI. Absent: scleral icterus, conjunctival injection, periorbital swelling ENT exam: Present: normal exam, mucous membranes moist Neck exam: Present: normal inspection. Absent: tenderness, meningismus, lym phadenopathy Respiratory exam: Present: normal lung sounds bilaterally. Absent: respiratory distress, wheezes, rales, rhonchi, stridor Cardiovascular Exam: Present: regular rate, normal rhythm, normal heart sounds. Absent: systolic murmur, diastolic murmur, rubs, gallop, clicks GI/Abdominal exam: Present: soft, normal bowel sounds. Absent: distended, tenderness, guarding, rebound, rigid Extremities exam: Present: normal inspection, full ROM, normal capillary refill. Absent: tenderness, pedal edema, joint swelling, calf tenderness Back exam: Present: normal inspection Neurological exam: Present: alert, oriented X3, CN II-XII intact Psychiatric exam: Present: normal affect, normal mood Skin exam: Present: warm, dry, intact, normal color. Absent: rash Course Vital Signs 03/17/20 20:18 Temperature 97.7 F Pulse Rate 75 Respiratory 20 Rate Blood Pressure 94/47 O2 Sat by Pulse 97 Oximetry - Reevaluation(s) Reevaluation #1: 03/17/20 21:51 Medical records reviewed Reevaluation #2: 03/17/20 21:52 Patient remains in no distress Reevaluation #3: 03/17/20 21:57 Family regarding findings, questions are answered EKG Findings - EKG Comments: EKG Findings:: EKG sinus rhythm 64 UT 160 QRS 114 QTc 473 Medical Decision Making - Medical Decision Making 31 female severe dementia unable to speak, a phasic unable to provide any history, patient has evaluation today here in the ER which is negative. Patient will be discharged home - Lab Data Result diagrams: 03/17/20 20:58 03/17/20 20:58 Lab Results 03/17/20 03/17/20 03/17/20 Range/Units 20:58 20:58 20:58 WBC 8.9 (3.8-10.6) k/uL RBC 3.81 (3.80-5.40) m/uL Hgb 11.7 (11.4-16.0) gm/dL Hct 36.2 (34.0-46.0) % MCV 95.0 (80.0-100.0) fL MCH 30.7 (25.0-35.0) pg MCHC 32.3 (31.0-37.0) g/dL RDW 12.3 (11.5-15.5) % Plt Count 288 (150-450) k/uL Neutrophils % 54 % Lymphocytes % 35 % Monocytes % 4 % Eosinophils % 5 % Basophils % 1 % Neutrophils # 4.8 (1.3-7.7) k/uL Lymphocytes # 3.1 (1.0-4.8) k/uL Monocytes # 0.4 (0-1.0) k/uL Eosinophils # 0.5 (0-0.7) k/uL Basophils # 0.1 (0-0.2) k/uL PT 9.6 (9.0-12.0) sec INR 0.9 (<1.2) APTT 20.5 L (22.0-30.0) sec Sodium 141 (137-145) mmol/L Potassium 4.5 (3.5-5.1) mmol/L Chloride 111 H (98-107) mmol/L Carbon Dioxide 26 (22-30) mmol/L Anion Gap 4 mmol/L BUN 16 (7-17) mg/dL Creatinine 0.78 (0.52-1.04) mg/dL Est GFR (CKD-EPI)AfAm 85 (>60 ml/min/1.73 sqM) Est GFR (CKD-EPI)NonAf 73 (>60 ml/min/1.73 sqM) Glucose 124 H (74-99) mg/dL Plasma Lactic Acid Josué (0.7-2.0) mmol/L Calcium 9.1 (8.4-10.2) mg/dL Phosphorus 3.8 (2.5-4.5) mg/dL Magnesium 2.2 (1.6-2.3) mg/dL Total Bilirubin 0.3 (0.2-1.3) mg/dL AST 26 (14-36) U/L ALT 9 (4-34) U/L Alkaline Phosphatase 62 (38-126) U/L Creatine Kinase 64 (30-135) U/L Troponin I (0.000-0.034) ng/mL Total Protein 6.7 (6.3-8.2) g/dL Albumin 3.6 (3.5-5.0) g/dL 03/17/20 03/17/20 Range/Units 20:58 20:58 WBC (3.8-10.6) k/uL RBC (3.80-5.40) m/uL Hgb (11.4-16.0) gm/dL Hct (34.0-46.0) % MCV (80.0-100.0) fL MCH (25.0-35.0) pg MCHC (31.0-37.0) g/dL RDW (11.5-15.5) % Plt Count (150-450) k/uL Neutrophils % % Lymphocytes % % Monocytes % % Eosinophils % % Basophils % % Neutrophils # (1.3-7.7) k/uL Lymphocytes # (1.0-4.8) k/uL Monocytes # (0-1.0) k/uL Eosinophils # (0-0.7) k/uL Basophils # (0-0.2) k/uL PT (9.0-12.0) sec INR (<1.2) APTT (22.0-30.0) sec Sodium (137-145) mmol/L Potassium (3.5-5.1) mmol/L Chloride (98-107) mmol/L Carbon Dioxide (22-30) mmol/L Anion Gap mmol/L BUN (7-17) mg/dL Creatinine (0.52-1.04) mg/dL Est GFR (CKD-EPI)AfAm (>60 ml/min/1.73 sqM) Est GFR (CKD-EPI)NonAf (>60 ml/min/1.73 sqM) Glucose (74-99) mg/dL Plasma Lactic Acid Josué 1.1 (0.7-2.0) mmol/L Calcium (8.4-10.2) mg/dL Phosphorus (2.5-4.5) mg/dL Magnesium (1.6-2.3) mg/dL Total Bilirubin (0.2-1.3) mg/dL AST (14-36) U/L ALT (4-34) U/L Alkaline Phosphatase (38-126) U/L Creatine Kinase (30-135) U/L Troponin I <0.012 (0.000-0.034) ng/mL Total Protein (6.3-8.2) g/dL Albumin (3.5-5.0) g/dL - Radiology Data Radiology results: report reviewed (Chest x-rays negative for acute disease), image reviewed Disposition Clinical Impression: Advanced dementia, Altered mental state, Normal exam Disposition: HOME SELF-CARE Condition: Good Instructions (If sedation given, give patient instructions): Altered Mental St atus (ED) Is patient prescribed a controlled substance at d/c from ED?: No Referrals: Guru Finn MD [Primary Care Provider] - 1-2 days
[2020-03-17 21:10] LABS: Basophils # (A) 0.1 k/uL (0-0.2); Basophils % (A) 1 %; Eosinophils # (A) 0.5 k/uL (0-0.7); Eosinophils % (A) 5 %; HCT 36.2 % (34.0-46.0); HGB 11.7 gm/dL (11.4-16.0); Lymphocytes # (A) 3.1 k/uL (1.0-4.8); Lymphocytes % (A) 35 %; MCH 30.7 pg (25.0-35.0); MCHC 32.3 g/dL (31.0-37.0); Mean Platelet Volume 8.8; Monocytes # (A) 0.4 k/uL (0-1.0); Monocytes % (A) 4 %; Neutrophils # (A) 4.8 k/uL (1.3-7.7); Neutrophils % (A) 54 %; Platelet Count 288 k/uL (150-450); RBC 3.81 m/uL (3.80-5.40); RDW 12.3 % (11.5-15.5); WBC 8.9 k/uL (3.8-10.6)
[2020-03-17 21:19] LABS: INR 0.9 (<1.2); Prothrombin Time 9.6 sec (9.0-12.0)
[2020-03-17 21:29] LABS: Partial Thromboplastin Time 20.5 sec (22.0-30.0)
[2020-03-17 21:46] LABS: Albumin 3.6 g/dL (3.5-5.0); Calcium 9.1 mg/dL (8.4-10.2); Magnesium 2.2 mg/dL (1.6-2.3); Phosphorus 3.8 mg/dL (2.5-4.5); Potassium 4.5 mmol/L (3.5-5.1); Total Bilirubin 0.3 mg/dL (0.2-1.3); Total Protein 6.7 g/dL (6.3-8.2)
--- NOTE | 2020-03-17 21:51 | XR ---
EXAMINATION TYPE: XR chest 2V DATE OF EXAM: 03/17/2020 COMPARISON: 12/08/2019 HISTORY: Weakness TECHNIQUE: FINDINGS: There is no heart failure nor confluent pneumonic infiltrate. Costophrenic angles are clear . There are chest leads. Bony thorax is intact. IMPRESSION: No active cardiopulmonary disease. Normal heart. No change.
[2020-03-17 23:00] VITALS: BP 114/87; PULSE 70; RESP 18; TEMP 98.1
== END 2020-03-17 23:00 | disposition home or self-care (01) ==
LOC: EC 20:11
DX: R41.82 Altered mental status, unspecified (principal); R53.1 Weakness; F03.90 Unspecified dementia, unspecified severity, without behavioral disturbance, psychotic disturbance, mood disturbance, and anxiety; E78.5 Hyperlipidemia, unspecified; I10 Essential (primary) hypertension; Z79.899 Other long term (current) drug therapy; Z88.0 Allergy status to penicillin; Z88.1 Allergy status to other antibiotic agents; Z88.2 Allergy status to sulfonamides; Z88.8 Allergy status to other drugs, medicaments and biological substances
CPT/HCPCS: 36415; 71046; 80053; 82550; 83605; 83735; 84100; 84484; 85025; 85610; 85730; 93005; 96360; 96361; 99285

== ENCOUNTER 2020-08-11 19:22 | Observation (INO) | payer MEDICARE, OTHER ==
[2020-08-11] MEDS ORDERED: SODIUM CHLORIDE 0.9% 1,000 ML IV STA (19:29)
--- NOTE | 2020-08-11 19:51 | ED ---
Syncope HPI - General Source: family, EMS, RN notes reviewed Mode of arrival: EMS Limitations: language barrier, altered mental status, physical limitation <Clifton Avendano - Last Filed: 08/11/20 22:40> <Racquel Choi - Last Filed: 08/13/20 11:25> - General Chief Complaint: Syncope Stated Complaint: Syncope Time Seen by Provider: 08/11/20 19:24 - History of Present Illness Initial Comments: Patient is a 79-year-old female that presents to emergency department status post syncopal episode while using the restroom. The entire history was gotten from the daughter due to the late stage dementia in the patient. Patient noted that there eating dinner and that was normal. Her fianc took her mother to the bathroom to use restroom. When he noticed that she fainted. Daughter noted that it took longer than usual for mother to regain level of alertness. Daughterthe patient did not hit her head or have any injuries or trauma resulting from syncopal episode. Patient appeared confused, disheveled male sitting in bed during the examination interview. Unable to obtain review of systems due to patient's mental status. (Clifton Avendano) - Related Data Home Medications Medication Instructions Recorded Confirmed Memantine HCl [Namenda Xr] 28 mg PO DAILY 05/15/17 08/11/20 lisinopriL [Zestril] 5 mg PO DAILY 05/15/17 08/11/20 Nitrofurantoin Macrocrystal 100 mg PO DAILY 08/11/20 08/11/20 [Macrodantin] Polyethylene Glycol 3350 [Miralax] 17 gm PO DAILY 08/11/20 08/11/20 Tobramycin 0.3% Ophth Oint [Tobrex 1 applic LEFT EYE TID 08/11/20 08/11/20 0.3% Ophth Oint] Allergies Allergy/AdvReac Type Severity Reaction Status Date / Time acetaminophen Allergy Unknown Verified 08/11/20 21:58 [From Darvocet-N 100] cefaclor [From Ceclor] Allergy Unknown Verified 08/11/20 21:58 ciprofloxacin [From Cipro] Allergy Unknown Verified 08/11/20 21:58 doxycycline [From Vibra-Tabs] Allergy Unknown Verified 08/11/20 21:58 erythromycin base Allergy Unknown Verified 08/11/20 21:58 penicillin V Allergy Unknown Verified 08/11/20 21:58 propoxyphene Allergy Unknown Verified 08/11/20 21:58 [From Darvocet-N 100] sulfamethoxazole Allergy Unknown Verified 08/11/20 21:58 [From Bactrim] trimethoprim [From Bactrim] Allergy Unknown Verified 08/11/20 21:58 Review of Systems ROS Other: All systems not noted in ROS Statement are negative. <AvendanoClifton - Last Filed: 08/11/20 22:40> ROS Other: All systems not noted in ROS Statement are negative. <Racquel Choi - Last Filed: 08/13/20 11:25> ROS Statement: Those systems with pertinent positive or pertinent negative responses have been documented in the HPI. Past Medical History Past Medical History: Dementia, Hyperlipidemia, Hypertension, Syncope Additional Past Medical History / Comment(s): Nonverbal, dysphagia/food impaction-pureed diet/crush pills and place in applesauce, constipation, incontinence of urine and stool, UTI, bronchitits, History of Any Multi-Drug Resistant Organisms: None Reported Past Surgical History: Cholecystectomy, Hysterectomy Additional Past Surgical History / Comment(s): EGD Past Anesthesia/Blood Transfusion Reactions: No Reported Reaction Past Psychological History: No Psychological Hx Reported Smoking Status: Never smoker Past Alcohol Use History: None Reported Past Drug Use History: None Reported - Past Family History Father Family Medical History: Myocardial Infarction ([place]) Additional Family Medical History / Comment(s): Father of a [place] in his 60s. Mother Family Medical History: No Reported History Additional Family Medical History / Comment(s): Mother was healthy <Avendano,Clifton - Last Filed: 08/11/20 22:40> General Exam Limitations: language barrier, altered mental status, physical limitation General appearance: alert Head exam: Present: atraumatic, normocephalic, normal inspection Eye exam: Present: normal appearance, PERRL, EOMI. Absent: scleral icterus, conjunctival injection, periorbital swelling ENT exam: Present: normal exam, mucous membranes moist Neck exam: Present: normal inspection. Absent: tenderness, meningismus, lymphadenopathy Respiratory exam: Present: normal lung sounds bilaterally. Absent: respiratory distress, wheezes, rales, rhonchi, stridor Cardiovascular Exam: Present: regular rate, normal rhythm, normal heart sounds. Absent: systolic murmur, diastolic murmur, rubs, gallop, clicks GI/Abdominal exam: Present: soft, normal bowel sounds. Absent: distended, tenderness, guarding, rebound, rigid Extremities exam: Present: normal inspection, full ROM, normal capillary refill. Absent: tenderness, pedal edema, joint swelling, calf tenderness Neurological exam: Present: alert, CN II-XII intact Psychiatric exam: Present: normal affect, normal mood Skin exam: Present: warm, dry, intact, normal color. Absent: rash <Clifton Avendano - Last Filed: 08/11/20 22:40> Course Vital Signs 08/11/20 08/12/20 08/12/20 19:25 00:27 06:31 Temperature 97.4 F L Pulse Rate 58 L 63 60 Respiratory 16 17 17 Rate Blood Pressure 98/57 80/56 119/82 O2 Sat by Pulse 98 99 98 Oximetry 08/12/20 08/12/20 08/12/20 07:10 12:47 17:23 Temperature 98.0 F Pulse Rate 62 62 60 Respiratory 18 18 18 Rate Blood Pressure 120/77 119/70 120/80 O2 Sat by Pulse 98 92 L 96 Oximetry EKG Findings - EKG Comments: EKG Findings:: Ventricular rate 55 bpm, VT interval 150 ms, QRS duration 140, QT/QTc 488/466, PareT axes 54/72/89. Sinus bradycardia, anterior septal infarct, age undetermined. Abnormal ECG. <Clifton Avendano - Last Filed: 08/11/20 22:40> Medical Decision Making - Lab Data Result diagrams: 08/11/20 19:52 08/11/20 19:52 - EKG Data -: EKG Interpreted by Ms EKG shows normal: sinus rhythm Rate: normal - Radiology Data Radiology results: report reviewed, image reviewed <Clifton Avendano - Last Filed: 08/11/20 22:40> - Lab Data Result diagrams: 08/11/20 19:52 08/11/20 19:52 <Racquel Choi - Last Filed: 08/13/20 11:25> - Medical Decision Making 71-year-old female status post syncopal episode while using the restroom. 1 L normal saline, labs, EKG, chest x-ray ordered. Case discussed with Dr. Choi, decided patient should be admitted for observation due to syncopal episode with elevated age. Dr. Goddard was consulted and accepted the admit. (Clifton Avendano) I was available for consultation in the emergency department. The history and physical exam were done by the midlevel provider. I was consulted for this patients care. I reviewed the case with the midlevel provider and based on their presentation of the patient, I agree with the assessment, medical decision making and plan of care as documented. Chart was dictated using [employer] dictation software. Attempts were made to correct any dictation errors however some typographical errors may persist. Patient was seen during a national state of emergency due to the Covid-19 pandemic. (Racquel Choi) - Lab Data Lab Results 08/11/20 08/11/20 08/11/20 Range/Units 19:52 19:52 19:52 WBC 9.2 (3.8-10.6) k/uL RBC 3.63 L (3.80-5.40) m/uL Hgb 11.3 L (11.4-16.0) gm/dL Hct 33.4 L (34.0-46.0) % MCV 92.1 (80.0-100.0) fL MCH 31.1 (25.0-35.0) pg MCHC 33.8 (31.0-37.0) g/dL RDW 12.0 (11.5-15.5) % Plt Count 264 (150-450) k/uL MPV 8.9 Neutrophils % 66 % Lymphocytes % 24 % Monocytes % 5 % Eosinophils % 4 % Basophils % 1 % Neutrophils # 6.1 (1.3-7.7) k/uL Lymphocytes # 2.2 (1.0-4.8) k/uL Monocytes # 0.5 (0-1.0) k/uL Eosinophils # 0.4 (0-0.7) k/uL Basophils # 0.0 (0-0.2) k/uL PT 10.0 (9.0-12.0) sec INR 0.9 (<1.2) APTT 17.6 L (22.0-30.0) sec Sodium (137-145) mmol/L Potassium (3.5-5.1) mmol/L Chloride (98-107) mmol/L Carbon Dioxide (22-30) mmol/L Anion Gap mmol/L BUN (7-17) mg/dL Creatinine (0.52-1.04) mg/dL Est GFR (CKD-EPI)AfAm (>60 ml/min/1.73 sqM) Est GFR (CKD-EPI)NonAf (>60 ml/min/1.73 sqM) Glucose (74-99) mg/dL Calcium (8.4-10.2) mg/dL Total Bilirubin (0.2-1.3) mg/dL AST (14-36) U/L ALT (4-34) U/L Alkaline Phosphatase (38-126) U/L Troponin I (0.000-0.034) ng/mL Total Protein (6.3-8.2) g/dL Albumin (3.5-5.0) g/dL Urine Color Yellow Urine Appearance Clear (Clear) Urine pH 7.0 (5.0-8.0) Ur Specific [place] 1.015 (1.001-1.035) Urine Protein Negative (Negative) Urine Glucose (UA) Negative (Negative) Urine Ketones Negative (Negative) Urine Blood Negative (Negative) Urine Nitrite Negative (Negative) Urine Bilirubin Negative (Negative) Urine Urobilinogen <2.0 (<2.0) mg/dL Ur Leukocyte Esterase Trace H (Negative) Urine RBC 2 (0-5) /hpf Urine WBC 2 (0-5) /hpf Ur Squamous Epith Cells <1 (0-4) /hpf Amorphous Sediment Rare H (None) /hpf Hyaline Casts 1 (0-2) /lpf 08/11/20 08/11/20 Range/Units 19:52 19:52 WBC (3.8-10.6) k/uL RBC (3.80-5.40) m/uL Hgb (11.4-16.0) gm/dL Hct (34.0-46.0) % MCV (80.0-100.0) fL MCH (25.0-35.0) pg MCHC (31.0-37.0) g/dL RDW (11.5-15.5) % Plt Count (150-450) k/uL MPV Neutrophils % % Lymphocytes % % Monocytes % % Eosinophils % % Basophils % % Neutrophils # (1.3-7.7) k/uL Lymphocytes # (1.0-4.8) k/uL Monocytes # (0-1.0) k/uL Eosinophils # (0-0.7) k/uL Basophils # (0-0.2) k/uL PT (9.0-12.0) sec INR (<1.2) APTT (22.0-30.0) sec Sodium 140 (137-145) mmol/L Potassium 4.8 (3.5-5.1) mmol/L Chloride 104 (98-107) mmol/L Carbon Dioxide 27 (22-30) mmol/L Anion Gap 9 mmol/L BUN 21 H (7-17) mg/dL Creatinine 0.97 (0.52-1.04) mg/dL Est GFR (CKD-EPI)AfAm 65 (>60 ml/min/1.73 sqM) Est GFR (CKD-EPI)NonAf 56 (>60 ml/min/1.73 sqM) Glucose 137 H (74-99) mg/dL Calcium 9.7 (8.4-10.2) mg/dL Total Bilirubin 0.2 (0.2-1.3) mg/dL AST 18 (14-36) U/L ALT 11 (4-34) U/L Alkaline Phosphatase 45 (38-126) U/L Troponin I <0.012 (0.000-0.034) ng/mL Total Protein 6.5 (6.3-8.2) g/dL Albumin 3.8 (3.5-5.0) g/dL Urine Color Urine Appearance (Clear) Urine pH (5.0-8.0) Ur Specific [place] (1.001-1.035) Urine Protein (Negative) Urine Glucose (UA) (Negative) Urine Ketones (Negative) Urine Blood (Negative) Urine Nitrite (Negative) Urine Bilirubin (Negative) Urine Urobilinogen (<2.0) mg/dL Ur Leukocyte Esterase (Negative) Urine RBC (0-5) /hpf Urine WBC (0-5) /hpf Ur Squamous Epith Cells (0-4) /hpf Amorphous Sediment (None) /hpf Hyaline Casts (0-2) /lpf - EKG Data EKG Comments: Ventricular rate 55 bpm, VT interval 150 ms, QRS duration 140, QT/QTc 488/466, PareT axes 54/72/89. Sinus bradycardia, anterior septal infarct, age undetermined. Abnormal ECG. (Clifton Avendano) - Radiology Data Chest x-ray: No active cardiopulmonary disease. Normal heart. No change. (Clifton Avendano) Disposition Time of Disposition: 22:41 <Clifton Avendano - Last Filed: 08/11/20 22:40> <Racquel Choi - Last Filed: 08/13/20 11:25> Clinical Impression: Syncope, Advanced dementia Disposition: ADMITTED IP TO THIS HOSP Condition: Stable
[2020-08-11 20:14] LABS: Basophils % (A) 1 %; Eosinophils # (A) 0.4 k/uL (0-0.7); Eosinophils % (A) 4 %; HCT 33.4 % (34.0-46.0); HGB 11.3 gm/dL (11.4-16.0); Lymphocytes # (A) 2.2 k/uL (1.0-4.8); Lymphocytes % (A) 24 %; MCH 31.1 pg (25.0-35.0); MCHC 33.8 g/dL (31.0-37.0); MCV 92.1 fL (80.0-100.0); Mean Platelet Volume 8.9; Monocytes # (A) 0.5 k/uL (0-1.0); Monocytes % (A) 5 %; Neutrophils # (A) 6.1 k/uL (1.3-7.7); Neutrophils % (A) 66 %; Platelet Count 264 k/uL (150-450); RBC 3.63 m/uL (3.80-5.40); WBC 9.2 k/uL (3.8-10.6)
[2020-08-11 20:23] LABS: Albumin 3.8 g/dL (3.5-5.0); Calcium 9.7 mg/dL (8.4-10.2); Potassium 4.8 mmol/L (3.5-5.1); Total Bilirubin 0.2 mg/dL (0.2-1.3); Total Protein 6.5 g/dL (6.3-8.2)
[2020-08-11 20:27] LABS: Amorphous Sediment,Urine Rare /hpf; Appearance,Urine Clear (Clear); Bilirubin,Urine Negative (Negative); Blood,Urine Negative (Negative); Color,Urine Yellow; Glucose,Urine (UA) Negative (Negative); Hyaline Casts,Urine 1 /lpf (0-2); Ketones,Urine Negative (Negative); Leukocyte Esterase,Urine Trace (Negative); Nitrite,Urine Negative (Negative); Protein,Urine Negative (Negative); RBC,Urine 2 /hpf (0-5); Specific Gravity,Urine 1.015 (1.001-1.035); Squamous Epithelial Cell,Urine <1 /hpf (0-4); Urobilinogen,Urine <2.0 mg/dL (<2.0); WBC,Urine 2 /hpf (0-5)
[2020-08-11 20:29] LABS: INR 0.9 (<1.2)
--- NOTE | 2020-08-11 20:38 | XR ---
EXAMINATION TYPE: XR chest 2V DATE OF EXAM: 08/11/2020 COMPARISON: 03/17/2020 HISTORY: Short of breath TECHNIQUE: 2 views FINDINGS: There is no heart failure nor confluent pneumonic infiltrate. Costophrenic angles are clear . Bony thorax is intact. IMPRESSION: No active cardiopulmonary disease. Normal heart. No change.
[2020-08-11 20:40] LABS: Partial Thromboplastin Time 17.6 sec (22.0-30.0)
[2020-08-11] MEDS ORDERED: NALOXONE 0.4 MG/ML 1 ML VIAL IV PRN (22:38)
[2020-08-11] MEDS ORDERED: MORPHINE SULFATE 4 MG/ML SYRINGE IV PRN (22:38)
[2020-08-11] MEDS ORDERED: ONDANSETRON 4 MG/2 ML VIAL IVP PRN (22:38)
[2020-08-11] MEDS ORDERED: traMADol 50 MG TAB PO PRN (23:00)
[2020-08-12] MEDS: SODIUM CHLORIDE 0.9% 1,000 ML IV SCH ×2 (02:01→21:39)
[2020-08-12] MEDS ORDERED: TOBRAMYCIN 0.3% OPHTH OINT 3.5 GM TUBE LEFT EYE SCH (11:15)
[2020-08-12] MEDS: NITROFURANTOIN MONOHYD/M-CRYST 100 MG CAP PO SCH (12:39)
[2020-08-12] MEDS: MEMANTINE 10 MG TAB PO SCH ×2 (12:39→21:37)
[2020-08-12] MEDS: polyethylene glycoL 3350 17 GM POWD.PACK PO SCH (12:39)
[2020-08-12] MEDS: ENOXAPARIN 40 MG/0.4 ML SYRINGE SQ SCH (12:39)
[2020-08-12 20:24] VITALS: RESP 16
[2020-08-13 05:25] VITALS: PULSE 58
[2020-08-13] MEDS: NITROFURANTOIN MONOHYD/M-CRYST 100 MG CAP PO SCH (10:16)
[2020-08-13] MEDS: polyethylene glycoL 3350 17 GM POWD.PACK PO SCH (10:16)
[2020-08-13] MEDS: ENOXAPARIN 40 MG/0.4 ML SYRINGE SQ SCH (10:32)
[2020-08-13] MEDS: MEMANTINE 10 MG TAB PO SCH (10:32)
[2020-08-13] MEDS: SODIUM CHLORIDE 0.9% 1,000 ML IV SCH (10:33)
[2020-08-13 11:47] VITALS: BP 89/48; TEMP 97.5
[2020-08-13 13:27] LABS: African American GFR (CKD) >90 (>60 ml/min/1.73 sqM); Anion Gap 5 mmol/L; Blood Urea Nitrogen 14 mg/dL (7-17); Calcium 9.3 mg/dL (8.4-10.2); Carbon Dioxide 31 mmol/L (22-30); Chloride 104 mmol/L (98-107); Glucose 103 mg/dL (74-99); Non-African American GFR(CKD) 81 (>60 ml/min/1.73 sqM); Potassium 4.5 mmol/L (3.5-5.1); Sodium 140 mmol/L (137-145)
--- NOTE | 2020-08-13 20:47 | P.HPIM ---
History of Present Illness H&P Date: 08/12/20 Chief Complaint: Syncope History of presenting complaint: This is a 79-year-old patient who follows with visiting physicians Dr. Gomez. Patient lives with her daughter at her fianc. Patient pretty much needs assistance to go the bathroom. Her oral intake has been going down. Barely able to recognize her daughter. Needs help with ADLs. Patient has been gradually declining over a period of time. Dementia has become rather advanced. Patient's daughter feels it to the patient to the bathroom to use the restroom. And then patient passed out. She did not injure herself. Patient also is unable to give any history. Started on IV fluids. Review of systems cannot be done patient's advanced dementia Past medical history to include: Dementia, hypertension, hyperlipidemia, incontinence, Social history: Lives with her daughter who is the caregiver. On a pured diet. No smoking or alcohol Physical examination: VITAL SIGNS: 97.4, 58, 16, 98/57, 98% on room air-upon presentation GENERAL: BMI 21.9, laying in bed, tired., Loss of subcutaneous fat EYES: Pupils equal. Conjunctiva normal. HEENT: External appearance of nose and ears normal, oral cavity dry. NECK: JVD unable to assess; masses not palpable. HEART: First and second heart sounds are normal; no edema. LUNGS: Respiratory rate normal; clear to auscultation. ABDOMEN: Soft, nontender, liver spleen not palpable, no masses palpable. PSYCH: [Patient is confused l MUSCULAR skeletal: Evidence of significant OA especially in the hands and knees. Wasting of muscles. NEUROLOGICAL: [Cranial nerves grossly intact; no facial asymmetry, moving her limbs LYMPHATICS: No lymph nodes palpable in the axilla and neck INVESTIGATIONS, reviewed in the clinical context: White count 9.2 hemoglobin 11.3 platelets 264 potassium 4.8 bun 21 creatinine 0.97 UA positive for leukoesterase trace Coronavirus [PCR]-not detected Troponin I 1 negative EKG tracing personally reviewed by me-poor R-wave progression in anterior leads. Heart rate 55 Chest x-ray film personally reviewed by me-no infiltrate Assessment and plan: -Acute on chronic medical debility. This is a patient at baseline needs assistance to go to the bathroom. Has been more weak now because of decreased oral intake. Dehydration. Fall precautions -Acute dehydration from decreased oral intake. Patient's BUN is elevated. Give IV fluids. -Severe cognitive impairment from late-onset Alzheimer's dementia. Patient will not benefit from Aricept. We'll consider stopping the same. -Chronic UTI with cystitis for which patient is on maintenance dose of Macrodantin -Essential hypertension. Patient has been on lisinopril. Blood pressures running on the lower side. Will DC the same. -Chronic constipation continue with MiraLAX Patient's ESTIVEN inhibitor to be discontinued. IV fluids. Prognosis guarded. Past Medical History Past Medical History: Dementia, Hyperlipidemia, Hypertension, Syncope Additional Past Medical History / Comment(s): Nonverbal, dysphagia/food impaction-pureed diet/crush pills and place in applesauce, constipation, incontinence of urine and stool, UTI, bronchitits, History of Any Multi-Drug Resistant Organisms: None Reported Past Surgical History: Cholecystectomy, Hysterectomy Additional Past Surgical History / Comment(s): EGD Past Anesthesia/Blood Transfusion Reactions: No Reported Reaction Past Psychological History: No Psychological Hx Reported Additional Psychological History / Comment(s): Pt has dementia. She resides with her donna who is her caregiver. She walks holding onto her donna. She has dysphagia-she is on a pureed diet, crush meds and place in applesauce. Smoking Status: Never smoker Past Alcohol Use History: None Reported Past Drug Use History: None Reported - Past Family History Father Family Medical History: Myocardial Infarction ([place]) Additional Family Medical History / Comment(s): Father of a [place] in his 60s. Mother Family Medical History: No Reported History Additional Family Medical History / Comment(s): Mother was healthy Medications and Allergies Home Medications Medication Instructions Recorded Confirmed Type Nitrofurantoin Macrocrystal 100 mg PO DAILY 08/11/20 08/11/20 History [Macrodantin] Polyethylene Glycol 3350 [Miralax] 17 gm PO DAILY 08/11/20 08/11/20 History Tobramycin 0.3% Ophth Oint [Tobrex 1 applic LEFT EYE TID 08/11/20 08/11/20 History 0.3% Ophth Oint] Allergies Allergy/AdvReac Type Severity Reaction Status Date / Time acetaminophen Allergy Unknown Verified 08/11/20 21:58 [From Darvocet-N 100] cefaclor [From Ceclor] Allergy Unknown Verified 08/11/20 21:58 ciprofloxacin [From Cipro] Allergy Unknown Verified 08/11/20 21:58 doxycycline [From Vibra-Tabs] Allergy Unknown Verified 08/11/20 21:58 erythromycin base Allergy Unknown Verified 08/11/20 21:58 penicillin V Allergy Unknown Verified 08/11/20 21:58 propoxyphene Allergy Unknown Verified 08/11/20 21:58 [From Darvocet-N 100] sulfamethoxazole Allergy Unknown Verified 08/11/20 21:58 [From Bactrim] trimethoprim [From Bactrim] Allergy Unknown Verified 08/11/20 21:58 Physical Exam Vitals: Vital Signs Temp Pulse Pulse Resp BP BP Pulse Ox 08/13/20 05:00 97.3 F L 58 L 16 95/55 100 08/12/20 19:30 16 08/12/20 19:00 97.8 F 77 16 129/63 95 08/12/20 17:23 60 18 120/80 96 08/12/20 12:47 62 18 119/70 92 L Intake and Output 08/12/20 08/13/20 08/13/20 22:59 06:59 14:59 Other: Voiding Method Diaper Incontinent # Voids 2 3 # Bowel Movements 0 Weight 54.431 kg Results CBC & Chem 7: 08/11/20 19:52 08/13/20 12:26 Thrombosis Risk Factor Assmnt - Choose All That Apply Any of the Below Risk Factors Present?: Yes Each Factor Represents 1 point: Medical pt on bed rest Other Risk Factors: Yes Each Risk Factor Represents 2 Points: Patient confined to bed Each Risk Factor Represents 3 Points: Age 75 years or older Other congenital or acquired thrombophilia - If yes, enter type in comment: No Thrombosis Risk Factor Assessment Total Risk Factor Score: 6 Thrombosis Risk Factor Assessment Level: High Risk
--- NOTE | 2020-08-13 20:52 | P.DS ---
Providers Date of admission: 08/11/20 22:34 Expected date of discharge: 08/13/20 Attending physician: Sanjay Goddard Primary care physician: Stated None Hospital Course: Chief Complaint: Syncope History of presenting complaint: This is a 79-year-old patient who follows with visiting physicians Dr. Gama. Patient lives with her daughter at her fianc. Patient pretty much needs assistance to go the bathroom. Her oral intake has been going down. Barely able to recognize her daughter. Needs help with ADLs. Patient has been gradually declining over a period of time. Dementia has become rather advanced. Patient's daughter feels it to the patient to the bathroom to use the restroom. And then patient passed out. She did not injure herself. Patient also is unable to give any history. Started on IV fluids. Admitted with dehydration, acute and chronic medical debility exacerbation. Responded well to IV fluids. Lisinopril was discontinued. Also Aricept will be not of much benefit discontinued. Care was discussed at length with the daughter the bedside. Questions answered. Past medical history to include: Dementia, hypertension, hyperlipidemia, incontinence, Social history: Lives with her daughter who is the caregiver. On a pured diet. No smoking or alcohol Physical examination: VITAL SIGNS: 97.5, 58, 16, 89/48, 99% room air GENERAL: BMI 21.9, laying in bed, tired., Loss of subcutaneous fat EYES: Pupils equal. Conjunctiva normal. HEENT: External appearance of nose and ears normal, NECK: JVD unable to assess; masses not palpable. HEART: First and second heart sounds are normal; no edema. LUNGS: Respiratory rate normal; clear to auscultation. ABDOMEN: Soft, nontender, liver spleen not palpable, no masses palpable. PSYCH: [Patient is confused l MUSCULAR skeletal: Evidence of significant OA especially in the hands and knees. Wasting of muscles. NEUROLOGICAL: [Cranial nerves grossly intact; no facial asymmetry, moving her limbs INVESTIGATIONS, reviewed in the clinical context: White count 9.2 hemoglobin 11.3 platelets 264 potassium 4.8 bun 21 creatinine 0.97 UA positive for leukoesterase trace Coronavirus [PCR]-not detected Troponin I 1 negative EKG tracing personally reviewed by me-poor R-wave progression in anterior leads. Heart rate 55 Chest x-ray film personally reviewed by me-no infiltrate Assessment and plan: -Acute on chronic medical debility. This is a patient at baseline needs assistance to go to the bathroom. Has been more weak now because of decreased oral intake. Dehydration. Fall precautions -Acute dehydration from decreased oral intake. Patient's BUN is elevated. Give IV fluids. -Severe cognitive impairment from late-onset Alzheimer's dementia. Patient will not benefit from Aricept. We'll consider stopping the same. -Chronic UTI with cystitis for which patient is on maintenance dose of Macrodantin -Essential hypertension. Patient has been on lisinopril. Blood pressures running on the lower side. Will DC the same. -Chronic constipation continue with MiraLAX -Mild protein calorie malnutrition from decreased oral intake Disposition: Home with daughter Advanced care planning: This was done with the patient's daughter the bedside. She is also the patient's deep UA. Patient's overall poor prognosis is guarded. It was explained that patient's dementia has not advanced. Also discussed about hospice which may be appropriate rather soon. She will discuss this further with patient's family doctor Dr. Gama. She understands she will need additional help down the road. Additional 20 minutes was spent with this Patient Condition at Discharge: Stable Plan - Discharge Summary Discharge Rx Participant: No New Discharge Prescriptions: Continue Tobramycin 0.3% Ophth Oint [Tobrex 0.3% Ophth Oint] 1 applic LEFT EYE TID Nitrofurantoin Macrocrystal [Macrodantin] 100 mg PO DAILY Polyethylene Glycol 3350 [Miralax] 17 gm PO DAILY Discontinued Memantine HCl [Namenda Xr] 28 mg PO DAILY lisinopriL [Zestril] 5 mg PO DAILY Discharge Medication List Nitrofurantoin Macrocrystal [Macrodantin] 100 mg PO DAILY 08/11/20 [History] Polyethylene Glycol 3350 [Miralax] 17 gm PO DAILY 08/11/20 [History] Tobramycin 0.3% Ophth Oint [Tobrex 0.3% Ophth Oint] 1 applic LEFT EYE TID 08/11/20 [History] Follow up Appointment(s)/Referral(s): Damir Gama MD [REFERRING] - 1 Week (the office is closed at the time of discharge, pt to call for appt friday) Patient Instructions/Handouts: Syncope (DC) Activity/Diet/Wound Care/Special Instructions: activity as tolerated Cont home diet as tolerated Discharge Disposition: HOME SELF-CARE
== END 2020-08-13 15:20 | disposition home or self-care (01) ==
LOC: EC 19:22 → 4SSUR 22:34 → 6NMEDSUR 23:20 → 4SSUR 23:35 → 5NMEDONC 08-12 18:17
PROVIDERS: ADMIT Hospitalist; ATTEND Hospitalist
DX: R55 Syncope and collapse (principal); E44.1 Mild protein-calorie malnutrition; E86.0 Dehydration; R53.81 Other malaise; I10 Essential (primary) hypertension; R13.10 Dysphagia, unspecified; F02.80 Dementia in other diseases classified elsewhere, unspecified severity, without behavioral disturbance, psychotic disturbance, mood disturbance, and anxiety; E78.5 Hyperlipidemia, unspecified; K59.09 Other constipation; N30.90 Cystitis, unspecified without hematuria; G30.1 Alzheimer's disease with late onset; Z90.710 Acquired absence of both cervix and uterus; Z82.49 Family history of ischemic heart disease and other diseases of the circulatory system; Z20.822 Contact with and (suspected) exposure to COVID-19
CPT/HCPCS: 96372 ×2; 96360; 96361 ×2; 99285; 36415; 93005; 80053; 80048; 84484; 85025; 85610; 85730; 81001; 87635; 71046; G0378 ×4; J1650 ×2

== ENCOUNTER 2021-03-20 13:53 | Emergency (ER) | payer MEDICARE, OTHER ==
[2021-03-20 14:11] VITALS: RESP 16; TEMP 98.8
[2021-03-20] MEDS ORDERED: MORPHINE SULFATE 4 MG/ML SYRINGE IVP STA (14:21)
--- NOTE | 2021-03-20 15:13 | XR ---
EXAMINATION TYPE: XR Hip LT and AP Pelvis DATE OF EXAM: 03/20/2021 COMPARISON: NONE HISTORY: Of pain TECHNIQUE: A single AP view of the pelvis is obtained. Two views of the left hip are obtained. FINDINGS: There is degenerative change of the lower lumbar spine. Patient rotated SI joints are symm etric. Arthropathy of the hips. Diffuse osteopenia. No definite acute fracture or dislocation. Visual ized osseous structures intact. IMPRESSION: 1. Arthropathy and osteopenia with no definite acute displaced fracture.
--- NOTE | 2021-03-20 15:17 | ED ---
Lower Extremity Injury HPI - General Chief Complaint: Extremity Injury, Lower Stated Complaint: Left hip pain/fall Time Seen by Provider: 03/20/21 14:06 Source: EMS, RN notes reviewed Mode of arrival: EMS Limitations: language barrier - History of Present Illness Initial Comments: Patient is a 80-year-old female that presents via EMS from facility. Staff noted the patient fell several days ago and has recently started acting like she is having left hip pain. Patient is a and O 0 baseline is not ambulatory. Patient does have some bruising to the right side of her chin and neck. The family members note that they are on was positive the patient does not take blood thinners. Patient was otherwise well-appearing in no apparent distress. Family denied any other complaints. - Related Data Home Medications Medication Instructions Recorded Confirmed Nitrofurantoin Macrocrystal 100 mg PO DAILY 08/11/20 08/11/20 [Macrodantin] Polyethylene Glycol 3350 [Miralax] 17 gm PO DAILY 08/11/20 08/11/20 Tobramycin 0.3% Ophth Oint [Tobrex 1 applic LEFT EYE TID 08/11/20 08/11/20 0.3% Ophth Oint] Allergies Allergy/AdvReac Type Severity Reaction Status Date / Time acetaminophen Allergy Unknown Verified 08/11/20 21:58 [From Darvocet-N 100] cefaclor [From Ceclor] Allergy Unknown Verified 08/11/20 21:58 ciprofloxacin [From Cipro] Allergy Unknown Verified 08/11/20 21:58 doxycycline [From Vibra-Tabs] Allergy Unknown Verified 08/11/20 21:58 erythromycin base Allergy Unknown Verified 08/11/20 21:58 penicillin V Allergy Unknown Verified 08/11/20 21:58 propoxyphene Allergy Unknown Verified 08/11/20 21:58 [From Darvocet-N 100] sulfamethoxazole Allergy Unknown Verified 08/11/20 21:58 [From Bactrim] trimethoprim [From Bactrim] Allergy Unknown Verified 08/11/20 21:58 Review of Systems ROS Statement: Those systems with pertinent positive or pertinent negative responses have been documented in the HPI. ROS Other: All systems not noted in ROS Statement are negative. Past Medical History Past Medical History: Dementia, Hyperlipidemia, Hypertension, Syncope Additional Past Medical History / Comment(s): Nonverbal, dysphagia/food impaction-pureed diet/crush pills and place in applesauce, constipation, incontinence of urine and stool, UTI, bronchitits, History of Any Multi-Drug Resistant Organisms: None Reported Past Surgical History: Cholecystectomy, Hysterectomy Additional Past Surgical History / Comment(s): EGD Past Anesthesia/Blood Transfusion Reactions: No Reported Reaction Past Psychological History: No Psychological Hx Reported Smoking Status: Never smoker Past Alcohol Use History: None Reported Past Drug Use History: None Reported - Past Family History Father Family Medical History: Myocardial Infarction ([place]) Additional Family Medical History / Comment(s): Father of a [place] in his 60s. Mother Family Medical History: No Reported History Additional Family Medical History / Comment(s): Mother was healthy General Exam Limitations: language barrier, altered mental status (Dementia), physical limitation General appearance: alert, in no apparent distress Head exam: Present: atraumatic, normocephalic, normal inspection Eye exam: Present: normal appearance, PERRL, EOMI. Absent: scleral icterus, conjunctival injection, periorbital swelling Neck exam: Present: normal inspection Respiratory exam: Present: normal lung sounds bilaterally. Absent: respiratory distress, wheezes, rales, rhonchi, stridor Cardiovascular Exam: Present: regular rate, normal rhythm, normal heart sounds. Absent: systolic murmur, diastolic murmur, rubs, gallop, clicks Extremities exam: Present: normal inspection, full ROM, tenderness (Over the left hip.), normal capillary refill. Absent: pedal edema, joint swelling, calf tenderness Neurological exam: Present: alert, oriented X3 Psychiatric exam: Present: normal affect, normal mood Skin exam: Present: warm, dry, intact, normal color. Absent: rash Course Vital Signs 03/20/21 14:00 Temperature 98.8 F Pulse Rate 68 Respiratory 16 Rate Blood Pressure 95/62 O2 Sat by Pulse 96 Oximetry Medical Decision Making - Medical Decision Making 80-year-old female with left hip pain presenting via EMS. X-ray of the left hip and pelvis, 4 mg of morphine ordered. X-ray negative for any acute fractures or dislocations. Patient most likely has left hip contusion. Case discussed with Dr. Mosley, patient discharge home/back to facility with follow-up to primary care. - Radiology Data Radiology results: report reviewed, image reviewed Left hip x-ray: Arthropathy and osteopenia with no definite acute displaced fracture. Disposition Clinical Impression: Contusion of left hip, Traumatic ecchymosis of chin Disposition: HOME SELF-CARE Condition: Stable Instructions (If sedation given, give patient instructions): Fall Prevention for Older Adults (ED) Additional Instructions: Please return to the Emergency Department if symptoms worsen or any other concerns. Follow-up with primary care 1-2 days. Is patient prescribed a controlled substance at d/c from ED?: No Referrals: Damir Gama MD [Primary Care Provider] - 1-2 days Time of Disposition: 15:49
[2021-03-20 20:25] VITALS: BP 115/68; PULSE 64
== END 2021-03-20 20:25 | disposition home or self-care (01) ==
LOC: EC 13:53
DX: S70.02XA Contusion of left hip, initial encounter (principal); S00.83XA Contusion of other part of head, initial encounter; I10 Essential (primary) hypertension; E78.5 Hyperlipidemia, unspecified; F03.90 Unspecified dementia, unspecified severity, without behavioral disturbance, psychotic disturbance, mood disturbance, and anxiety; Z79.899 Other long term (current) drug therapy; Z88.0 Allergy status to penicillin; Z88.1 Allergy status to other antibiotic agents; Z88.2 Allergy status to sulfonamides; Z88.8 Allergy status to other drugs, medicaments and biological substances; X58.XXXA Exposure to other specified factors, initial encounter
CPT/HCPCS: 73502; 96374; 99284; J2270